=== PATIENT | female | born 1965 | race Caucasian/White ===

== ENCOUNTER 2023-05-30 13:21 | Emergency (ER) | payer MEDICARE, SELFPAY ==
[2023-05-30 13:33] VITALS: BP 136/100; PULSE 104; RESP 18; TEMP 37; O2SAT 97; BMI 28.6
--- NOTE | 2023-05-30 13:51 | XR_ITS ---
The [address] [address] Patient Name: TOR SYKES MRN: [id number] date: 1965 Sex: F Assigned Patient Location: ER Current Patient Location: ER Accession/Order Number: [id number] Exam Date: 05/30/2023 14:15 Report Date: 05/30/2023 14:52 At the request of: VANE KERNS Procedure: XR ribs LT min 3V w CXR1V EXAMINATION: XR ribs LT min 3V w CXR1V HISTORY: Fall COMPARISON: No relevant comparison available. FINDINGS: LUNGS: No significant pulmonary parenchymal abnormalities. PLEURA: No pneumothorax, effusion, or pleural thickening. MEDIASTINUM: No visible mass or adenopathy. CARDIAC: No cardiomegaly or cardiac silhouette abnormality. RIBS: Normal. No significant arthropathy or acute abnormality. OTHER: 22 mm separation of the left acromioclavicular joint; normal alignment is maintained. XR/XR ribs LT min 3V w CXR1V IMPRESSION: 1. No appreciable rib abnormality. 2. No acute cardiopulmonary process. 3. Left acromioclavicular joint separation. Electronically authenticated by: MAURICIO LARSON Date: 05/30/2023 14:52
--- NOTE | 2023-05-30 13:51 | XR_ITS ---
The [address] [address] Patient Name: TOR SYKES MRN: [id number] date: 1965 Sex: F Assigned Patient Location: ER Current Patient Location: ER Accession/Order Number: [id number] Exam Date: 05/30/2023 14:15 Report Date: 05/30/2023 14:48 At the request of: VANE KERNS Procedure: XR shoulder LT min 2V PROCEDURE: XR clavicle LT, XR shoulder LT min 2V HISTORY: Fall , left rib and shoulder pain COMPARISON: None. FINDINGS: BONES:Abnormal 22 mm widening of the acromioclavicular joint; normal alignment is maintained. Intact humeral head and glenohumeral joint. SOFT TISSUES:No visible soft tissue swelling. EFFUSION:None visible. OTHER: Negative. XR/XR shoulder LT min 2V IMPRESSION: 1. Left acromioclavicular joint separation. Electronically authenticated by: MAURICIO LARSON Date: 05/30/2023 14:48
--- NOTE | 2023-05-30 13:51 | XR_ITS ---
The [address] [address] Patient Name: TOR SYKES MRN: [id number] date: 1965 Sex: F Assigned Patient Location: ER Current Patient Location: ER Accession/Order Number: [id number] Exam Date: 05/30/2023 14:15 Report Date: 05/30/2023 14:48 At the request of: VANE KERNS Procedure: XR clavicle LT PROCEDURE: XR clavicle LT, XR shoulder LT min 2V HISTORY: Fall , left rib and shoulder pain COMPARISON: None. FINDINGS: BONES:Abnormal 22 mm widening of the acromioclavicular joint; normal alignment is maintained. Intact humeral head and glenohumeral joint. SOFT TISSUES:No visible soft tissue swelling. EFFUSION:None visible. OTHER: Negative. XR/XR clavicle LT IMPRESSION: 1. Left acromioclavicular joint separation. Electronically authenticated by: MAURICIO LARSON Date: 05/30/2023 14:48
--- NOTE | 2023-05-30 13:55 | ED_ITS ---
HPI - Trauma General Chief Complaint: Extremity Injury, Upper Stated Complaint: SHOULDER PAIN Time Seen by Provider: 05/30/23 13:23 Source: patient Mode of arrival: walk-in History of Present Illness HPI narrative: patient is a 57-year-old female, deaf and uses sign language, who presents to the Emergency Room with her significant other for the evaluation of continued left shoulder, left clavicle and left chest wall pain. Patient states she felt 8 feet for months ago on . She has previously been seen at the [place] emergency department with x-rays performed. She states they discharged her home with no medications for pain and orthopedic follow-up. She continues to have significant pain in the left shoulder joint as well as in the left clavicle. She reports pain to the left chest wall under the axilla. She has been using Tylenol without improvement. She does not take any blood thinners. She denies any pain to the neck or back. History and physical were conducted with the use of software design manager. Related Data Home Medications Medication Instructions Recorded Confirmed albuterol sulfate 90 mcg/actuation 2 puff inhalation Q4H PRN 05/30/23 05/30/23 aerosol inhaler shortness of breath or wheezing bupropion HCl 150 mg 24 hr tablet, 150 mg PO DAILY 05/30/23 05/30/23 extended release Previous Rx's Medication Instructions Recorded hydrocodone 5 mg-acetaminophen 325 1 tab PO Q6H PRN pain #12 tabs 05/30/23 mg tablet methocarbamol 750 mg tablet 750 mg PO TID PRN pain #20 tabs 05/30/23 naproxen sodium 550 mg tablet 550 mg PO BID PRN pain #10 tabs 05/30/23 Allergies Allergy/AdvReac Type Severity Reaction Status Date / Time Penicillins Allergy Severe Verified 05/30/23 13:39 Review of Systems ROS Constitutional Denies: fever or chills Ears, nose, mouth, and throat Denies: throat pain or neck pain Respiratory Denies: shortness of breath Gastrointestinal Denies: nausea or vomiting Musculoskeletal Reports: extremity pain, joint pain and limited range of motion; Denies: back pain or neck pain Integumentary/Breast Denies: rash Neurological Denies: headache Exam Narrative Exam Narrative: Gen.: Awake, alert, in no distress Head: Normocephalic, atraumatic ENT: Moist mucous membranes; cervical spine is nontender Respiratory: No respiratory distress Extremities: significant pain with movement of the left shoulder joint, diffusely tender to palpation of the left anterior clavicle with mild edema noted, no ecchymosis or erythema of the skin over the clavicle. No pain to the left elbow or forearm. No bony tenderness of the T-spine or L-spine Psych: Normal mood and affect Neuro: No focal neuro deficit Skin: Warm, dry, intact Constitutional Vital Signs, click to edit/add: Last Vital Signs Temp 98.6 F 05/30/23 13:33 Pulse 104 H 05/30/23 13:33 Resp 18 05/30/23 13:33 BP 136/100 H 05/30/23 13:33 Pulse Ox 97 05/30/23 13:33 O2 Del Method Room Air 05/30/23 13:44 Course Vital Signs Vital signs: Vital Signs Temperature 98.6 F 05/30/23 13:33 Pulse Rate 104 H 05/30/23 13:33 Respiratory Rate 18 05/30/23 13:33 Blood Pressure 136/100 H 05/30/23 13:33 Pulse Oximetry 97 05/30/23 13:33 Oxygen Delivery Method Room Air 05/30/23 13:33 Temperature 98.6 F 05/30/23 13:33 Pulse Rate 104 H 05/30/23 13:33 Respiratory Rate 18 05/30/23 13:33 Blood Pressure 136/100 H 05/30/23 13:33 Pulse Oximetry 97 05/30/23 13:33 Oxygen Delivery Method Room Air 05/30/23 13:44 MDM - Trauma MDM Narrative Medical decision making narrative: patient medicated with analgesics in the Emergency Room, x-rays of the left clavicle, left shoulder and ribs with chest show the patient has a separation of the left acromioclavicular joint. She is placed in a sling and remains neurovascularly intact. No other bony abnormalities were noted on x-rays. Patient is referred to orthopedics. She is given a short course of analgesics, muscle relaxants and NSAIDs. Return to the Emergency Room if symptoms change or worsen. Discharge instructions were provided by attending physician with the use of software design manager. Medical Records Attestation: I reviewed the patient's medical records. Imaging Data XR shoulder/clavicle/ribs: Attestation: I have reviewed the pertinent imaging results. Radiologist's impression: Procedure: XR ribs LT min 3V w CXR1V EXAMINATION: XR ribs LT min 3V w CXR1V HISTORY: Fall COMPARISON: No relevant comparison available. FINDINGS: LUNGS: No significant pulmonary parenchymal abnormalities. PLEURA: No pneumothorax, effusion, or pleural thickening. MEDIASTINUM: No visible mass or adenopathy. CARDIAC: No cardiomegaly or cardiac silhouette abnormality. RIBS: Normal. No significant arthropathy or acute abnormality. OTHER: 22 mm separation of the left acromioclavicular joint; normal alignment is maintained. IMPRESSION: 1. No appreciable rib abnormality. 2. No acute cardiopulmonary process. 3. Left acromioclavicular joint separation. Electronically authenticated by: MAURICIO LARSON Date: 05/30/2023 14:52 Discharge Plan Discharge Chief Complaint: Extremity Injury, Upper Clinical Impression: Separation of left acromioclavicular joint, Left shoulder pain Patient Disposition: Home, Self-Care Time of Disposition Decision: 14:56 Condition: Good Prescriptions / Home Meds: New hydrocodone-acetaminophen 5-325 mg tablet 1 tab PO Q6H PRN (Reason: pain) Qty: 12 0RF Rx Instructions: DX: S43.122A methocarbamol 750 mg tablet 750 mg PO TID PRN (Reason: pain) Qty: 20 0RF naproxen sodium 550 mg tablet 550 mg PO BID PRN (Reason: pain) Qty: 10 0RF No Action bupropion HCl 150 mg tablet extended release 24 hr 150 mg PO DAILY albuterol sulfate 90 mcg/actuation HFA aerosol inhaler 2 puff INHALATION Q4H PRN (Reason: shortness of breath or wheezing) Instructions: Acromioclavicular Separation (ED) Stand Alone Forms: Portal Instructions Referrals: Physician,Non-Staff, [Primary Care Provider] - 1 week Mauricio Taylor MD [Physician] - As soon as possible
[2023-05-30] MEDS: ORPHENADRINE 60 MG/ 2 ML VIAL IM (14:04)
[2023-05-30] MEDS: KETOROLAC TROMETHAMINE 60 MG/2 ML VIAL IM (14:04)
== END 2023-05-30 15:19 | disposition home or self-care (01) ==
PROVIDERS: Emergency Provider Emergency Medicine
DX: S43.102A Unspecified dislocation of left acromioclavicular joint, initial encounter (principal); W19.XXXA Unspecified fall, initial encounter; M25.512 Pain in left shoulder; H91.93 Unspecified hearing loss, bilateral; Z79.899 Other long term (current) drug therapy
CPT/HCPCS: 71101; 73000; 73030; 96372; 99284

== ENCOUNTER 2023-07-18 22:44 | Emergency (ER) | payer MEDICARE, SELFPAY ==
[2023-07-18 22:45] VITALS: BP 110/50; PULSE 87; RESP 18; TEMP 36.6; O2SAT 97; BMI 30.9
--- NOTE | 2023-07-18 22:59 | ECG_ITS ---
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
--- NOTE | 2023-07-18 23:14 | XR_ITS ---
The [address] [address] Patient Name: TOR SYKES MRN: [id number] date: 1965 Sex: F Assigned Patient Location: ED.MAIN Current Patient Location: ER Accession/Order Number: [id number] Exam Date: 07/18/2023 23:30 Report Date: 07/19/2023 00:13 At the request of: ARA MARKER Procedure: XR shoulder JHON min 2V EXAM: XR shoulder JHON min 2V HISTORY: shoulder pain s/p fall COMPARISON: Left shoulder radiographs dated 05/30/2023. TECHNIQUE: 3 views of each shoulder were obtained. FINDINGS: No acute fracture or dislocation is seen. There has been resection of the distal left clavicle. The humeral head is well-seated on the glenoid bilaterally. The coracoclavicular distance is preserved bilaterally. The imaged lungs are clear. There are mild degenerative changes of the right acromioclavicular joint. XR/XR shoulder JHON min 2V IMPRESSION: 1. No acute fracture or dislocation of either shoulder is seen. If there is concern for internal derangement, a nonemergent outpatient MRI is recommended. Electronically authenticated by: Saúl URIBE Date: 07/19/2023 00:13
--- NOTE | 2023-07-18 23:29 | ED_ITS ---
HPI - General Adult General Chief complaint: Shortness of Breath/Dyspnea Stated complaint: Weakness Time Seen by Provider: 07/18/23 22:56 Source: patient Mode of arrival: ambulance Limitations: language barrier Limitations comment: Pt is deaf History of Present Illness HPI narrative: This 57-year-old female is brought to the emergency department by EMS from home. The patient is definitely uses a printed circuit board layout designer for history and physical. The patient had a fall on and injured her left shoulder. She has been seen several times in this emergency department since that time. She told the onsite case manager that she fell again today and has severe pain in the left shoulder. She is wearing a sling on the shoulder. She denies any shortness of breath or dizziness. She states she is following up with Dr. Taylor, orthopedic surgery.An x-ray that was done on 05/30/2023 shows an AC separation of the left shoulder. She is ambulatory in the ED and moving her right arm around to communicate with the sign language interpretor Related Data Home Medications Medication Instructions Recorded Confirmed albuterol sulfate 90 mcg/actuation 2 puff inhalation Q4H PRN 05/30/23 07/18/23 aerosol inhaler shortness of breath or wheezing bupropion HCl 150 mg 24 hr tablet, 150 mg PO DAILY 05/30/23 07/18/23 extended release buspirone 15 mg tablet mg 07/18/23 citalopram 20 mg tablet mg 07/18/23 trazodone 100 mg tablet mg 07/18/23 Previous Rx's Medication Instructions Recorded hydrocodone 5 mg-acetaminophen 325 1 tab PO Q6H PRN pain #12 tabs 05/30/23 mg tablet methocarbamol 750 mg tablet 750 mg PO TID PRN pain #20 tabs 05/30/23 naproxen sodium 550 mg tablet 550 mg PO BID PRN pain #10 tabs 05/30/23 Allergies Allergy/AdvReac Type Severity Reaction Status Date / Time Penicillins Allergy Severe Verified 07/18/23 23:05 Review of Systems ROS Status of ROS 10 or more systems reviewed and unremarkable except as noted in history and below Exam Narrative Exam Narrative: Nurses note and vital signs reviewed and patient is not hypoxic. General: The patient appears well and in no apparent distress. She is communicating actively with the printed circuit board layout designer using her right upper extremity. Left upper extremity is in a sling. Skin: Warm, dry, no pallor noted. There is no rash noted. Head: Normocephalic, atraumatic Eye: Normal conjunctiva, no drainage, EOMI. PERRL Ears, Nose, Mouth, and Throat: oral mucosa is moist. Patient is edentulous Cardiovascular: Regular Rate and Rhythm Respiratory: Patient is in no distress, no accessory muscle use, lungs are clear to auscultation, no wheezing, rales or rhonchi Back: non-tender, no CVA tenderness bilaterally to percussion. GI: Normal bowel sounds, no tenderness to palpation, no masses appreciated. No rebound, guarding, or rigidity noted. Musculoskeletal: Left upper extremity is normal in appearance with tenderness to the anterior shoulder girdle. Patient resists range of motion exercises and pushes my hand away when I attempt to examine it but there is no notable deformity. Supervisor Incising strength is intact Neurological: Pt is deaf but otherwise has no focal neurologic deficits, she is communicating actively inappropriately with the printed circuit board layout designer and able to read lips. Psychiatric: Cooperative Constitutional Vital Signs, click to edit/add: Last Vital Signs Temp 97.9 F 07/18/23 22:45 Pulse 87 07/18/23 22:45 Resp 18 07/18/23 22:45 BP 110/50 07/18/23 22:45 Pulse Ox 97 07/18/23 22:45 O2 Del Method Room Air 07/18/23 22:45 Course Vital Signs Vital signs: Vital Signs Temperature 97.9 F 07/18/23 22:45 Pulse Rate 87 07/18/23 22:45 Respiratory Rate 18 07/18/23 22:45 Blood Pressure 110/50 07/18/23 22:45 Pulse Oximetry 97 07/18/23 22:45 Oxygen Delivery Method Room Air 07/18/23 22:45 Temperature 97.9 F 07/18/23 22:45 Pulse Rate 87 07/18/23 22:45 Respiratory Rate 18 07/18/23 22:45 Blood Pressure 110/50 07/18/23 22:45 Pulse Oximetry 97 07/18/23 22:45 Oxygen Delivery Method Room Air 07/18/23 22:45 Medical Decision Making MDM Narrative Medical decision making narrative: This 57-year-old female who injured her shoulder over and then had an additional fall recently presents for evaluation of ongoing/worsening left shoulder pain. She has been seeing Dr. Taylor. She requests something for pain. I reviewed her OARRs report and it shows activity on 05/30/23 after an ED visit for the same shoulder pain. She was medicated in the ED with one percocet and will be discharged home with a short course of [place]. Medical Records Medical records narrative: The [address] [address] XRay Report Signed Patient: TOR SYKES MR#: [id number] : 1965 Acct:[id number] Age/Sex: 57 / F ADM Date: 07/18/23 Loc: ER Attending Dr: Ordering Physician: Keri Meza Date of Service: 07/18/23 Procedure(s): XR shoulder JHON min 2V Accession Number(s): [id number] cc: Keri Marker; Physician,Non-Staff M.D.~ The [address] [address] Patient Name: TOR SYKES MRN: [id number] date: 1965 Sex: F Assigned Patient Location: ED.MAIN Current Patient Location: ER Accession/Order Number: [id number] Exam Date: 07/18/2023 23:30 Report Date: 07/19/2023 00:13 At the request of: KERI MEZA Procedure: XR shoulder JHON min 2V EXAM: XR shoulder JHON min 2V HISTORY: shoulder pain s/p fall COMPARISON: Left shoulder radiographs dated 05/30/2023. TECHNIQUE: 3 views of each shoulder were obtained. FINDINGS: No acute fracture or dislocation is seen. There has been resection of the distal left clavicle. The humeral head is well-seated on the glenoid bilaterally. The coracoclavicular distance is preserved bilaterally. The imaged lungs are clear. There are mild degenerative changes of the right acromioclavicular joint. XR/XR shoulder JHON min 2V IMPRESSION: 1. No acute fracture or dislocation of either shoulder is seen. If there is concern for internal derangement, a nonemergent outpatient MRI is recommended. Discharge Plan Discharge Chief Complaint: Shortness of Breath/Dyspnea Clinical Impression: Left shoulder pain Patient Disposition: Home, Self-Care Time of Disposition Decision: 00:54 Condition: Good Prescriptions / Home Meds: No Action bupropion HCl 150 mg tablet extended release 24 hr 150 mg PO DAILY albuterol sulfate 90 mcg/actuation HFA aerosol inhaler 2 puff INHALATION Q4H PRN (Reason: shortness of breath or wheezing) hydrocodone-acetaminophen 5-325 mg tablet 1 tab PO Q6H PRN (Reason: pain) Qty: 12 0RF Rx Instructions: DX: S43.122A methocarbamol 750 mg tablet 750 mg PO TID PRN (Reason: pain) Qty: 20 0RF naproxen sodium 550 mg tablet 550 mg PO BID PRN (Reason: pain) Qty: 10 0RF citalopram 20 mg tablet trazodone 100 mg tablet buspirone 15 mg tablet Instructions: Arthralgia (ED), Shoulder Pain (ED) Stand Alone Forms: Portal Instructions Referrals: Physician,Non-Staff, MD [Primary Care Provider] - 1 week Tyson Taylor MD [Physician] - 1 week
[2023-07-18] MEDS: OXYCODONE HCL/ACETAMINOPHEN 5MG/325MG 1 TAB PO (23:46)
[2023-07-19 01:10] VITALS: BP 135/85; PULSE 75; RESP 15; O2SAT 97
== END 2023-07-19 01:11 | disposition home or self-care (01) ==
PROVIDERS: Emergency Provider Emergency Medicine
DX: M25.512 Pain in left shoulder (principal); W19.XXXA Unspecified fall, initial encounter; H91.93 Unspecified hearing loss, bilateral; Z79.899 Other long term (current) drug therapy
CPT/HCPCS: 73030; 93005; 99284

== ENCOUNTER 2023-09-29 16:09 | Emergency (ER) | payer MEDICARE, MEDICAID, SELFPAY ==
[2023-09-29 16:15] VITALS: BP 116/87; PULSE 90; RESP 20; TEMP 36.7; O2SAT 97; BMI 29.6
--- OUTSIDE RECORDS SUMMARY | 2023-09-29 16:15 | XMS_ITS | CCD ---
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 Name Role Phone Unavailable Primary Care Provider RUSH Islas Referring Unavailable RUSH BULLOCK Referring Unavailable RITESH OLIVAS Attending Unavailable RITESH OLIVAS Admitting Unavailable SELF, REFERRED Referring Unavailable RAJEEV AGUIRRE Primary Care Unavailable NON STAFF Primary Care Provider UnavailMD Jm Dunlap Admit Provider MD Jm Thrasher Attending Provider NON STAFF Primary Care Provider UnavailMD Ryne Rowland Admit Provider [phone] MD Ryne Velasquez Attending Provider Ryne Velasquez Attending Unavailable NON STAFF Primary Care Unavailable Ryne Velasquez Admitting Unavailable Emilio Thrasher Admitting Unavailab Emilio Romo Attending Unavailab le NON STAFF Primary Care Unavailable Allergies Allergy Classification Reported Allergen(s) Allergy Type Date of Onset Reaction(s) Facility (4 sources) Penicillins; Translations: [PENICILLINS] Propensity to adverse reactions (disorder) 200 9 Difficulty Breathing [facility] Repository Medications Current Medications Medication Drug Class(es) Dates Sig (Normalized) Sig (Original) [id number] 200 actuat albuterol 0.09 mg/actuat metered dose inhaler (2 sources) beta2-Adrenergic Agonist Start: 09-15-2022 take 1 puff(s) by inhalation every six hours Albuterol Sulfate Active 2 PUFF INHALATION Q6H September 15, 2022 1:00am 24 hr buPROPion hydrochloride 150 mg extended release oral tablet (3 sources) Aminoketone Start: 07-12-2023 take 150 mg by mouth once daily in the morning Bupropion Hcl Active 150 MG PO Every morning July 12, 2023 12:00am Start: 09-18-2022 End: 07-09-2023 take 150 mg by mouth once daily in the morning Bupropion Hcl Discontinued 150 MG PO Every morning September 18, 2022 1:00am July 09, 2023 1:50am busPIRone hydrochloride 15 mg oral tablet (5 sources) Start: 07-12-2023 take 15 mg by mouth three times daily Buspirone Active 15 MG PO Three times daily July 12, 2023 12:00am Start: 09-15-2022 End: 07-09-2023 take 15 mg by mouth three times daily Buspirone Discontinued 15 MG PO Three times daily September 15, 2022 1:00am July 09, 2023 1:50am Start: 10-23-2020 End: 09-15-2022 take 10 mg by mouth three times daily Buspirone Discontinued 10 MG PO Three times daily October 23, 2020 1:00am September 15, 2022 2:04pm citalopram 20 mg oral tablet (5 sources) Serotonin Reuptake Inhibitor Start: 07-12-2023 take 20 mg by mouth once daily in the morning Citalopram Active 20 MG PO Every morning July 12, 2023 12:00am Start: 09-15-2022 End: 07-09-2023 take 40 mg by mouth once daily Citalopram Discontinued 40 MG PO Daily September 15, 2022 1:00am July 09, 2023 1:50am Start: 10-23-2020 End: 09-15-2022 take 20 mg by mouth once daily in the morning Citalopram Discontinued 20 MG PO Every morning October 23, 2020 1:00am September 15, 2022 2:04pm 24 hr nicotine 0.875 mg/hr transdermal system (3 sources) Cholinergic Nicotinic Agonist Start: 07-12-2023 Nicotine Active 1 EACH TRANSDERML Daily July 12, 2023 12:00am Start: 10-23-2020 End: 09-15-2022 Nicotine Discontinued 1 EACH TRANSDERML Daily October 23, 2020 1:00am September 15, 2022 2:04pm traMADol hydrochloride 50 mg oral tablet (1 source) Opioid Agonist Start: 07-12-2023 take 50 mg by mouth twice daily Tramadol Active 50 MG PO Twice daily 29 06July 12, 2023 12:00am traZODone hydrochloride 100 mg oral tablet (3 sources) Serotonin Reuptake Inhibitor Start: 07-12-2023 take 100 mg by mouth once daily at bedtime Trazodone Active 100 MG PO Daily at bedtime July 12, 2023 12:00am Start: 09-15-2022 End: 07-09-2023 take 150 mg by mouth once daily at bedtime Trazodone Discontinued 150 MG PO Daily at bedtime September 15, 2022 1:00am July 09, 2023 1:50am Completed/Discontinued Medications Medication Drug Class(es) Dates Sig (Normalized) Sig (Original) aspirin 81 mg oral tablet (2 sources) Platelet Aggregation Inhibitor, Nonsteroidal Anti-inflammatory Drug Start: 09-15-2022 End: 07-09-2023 take 81 mg by mouth once daily Aspirin Discontinued 81 MG PO Daily September 15, 2022 1:00am July 09, 2023 1:50am azithromycin 250 mg oral tablet (2 sources) Macrolide Antimicrobial Start: 10-21-2020 End: 10-23-2020 take 250 mg by mouth once daily Azithromycin Discontinued 250 MG PO Daily October 21, 2020 1:00am October 23, 2020 1:37pm 2 doses left; picked up on 10/18/2020 benzonatate 100 mg oral capsule (2 sources) Non-narcotic Antitussive Start: 10-21-2020 End: 09-15-2022 take 100 mg by mouth three times daily Benzonatate Discontinued 100 MG PO Three times daily October 21, 2020 1:00am September 15, 2022 2:04pm quanity left 13 doxycycline hyclate 100 mg oral tablet (2 sources) Tetracycline-class Drug Start: 09-15-2022 End: 07-09-2023 Doxycycline Hyclate Discontinued 100 MG PO Twice daily September 15, 2022 1:00am July 09, 2023 1:50am x10 days, needs 17 more doses fluticasone propionate 0.05 mg/actuat metered dose nasal spray (2 sources) Corticosteroid Start: 09-15-2022 End: 07-09-2023 Fluticasone Propionate Discontinued 2 SPRAY INTRANASAL Daily September 15, 2022 1:00am July 09, 2023 1:50am hydrOXYzine pamoate 25 mg oral capsule (2 sources) Antihistamine Start: 09-15-2022 End: 07-09-2023 take 25 mg by mouth three times daily Hydroxyzine Pamoate Discontinued 25 MG PO Three times daily September 15, 2022 1:00am July 09, 2023 1:50am OLANZapine 5 mg oral tablet (2 sources) Atypical Antipsychotic Start: 10-23-2020 End: 09-15-2022 take 5 mg by mouth once daily at bedtime Olanzapine Discontinued 5 MG PO Daily at bedtime October 23, 2020 1:00am September 15, 2022 2:04pm Polymyxin B Sulf-Trimethoprim (2 sources) Start: 10-21-2020 End: 09-15-2022 take 1 drop(s) into the eye(s) once daily Polymyxin B Sulf-Trimethoprim Discontinued 2 DROPS OPHTHALMIC Daily October 21, 2020 1:00am September 15, 2022 2:04pm Start: 10-21-2020 End: 09-15-2022 take 1 drop(s) into the eye(s) once daily Polymyxin B Sulf-Trimethoprim Discontinued 2 DROPS OPHTHALMIC Daily October 21, 2020 12:00am September 15, 2022 1:04pm Problems Problem Classification Problem Date Documented Da te Episodic/Chronic Mood disorders (6 sources) Recurrent major depression; Translations: [Major depressive disorder, recurrent, unspecified] Onset: 07-09-2023 10-21-2020 Chronic Other nervous system disorders (1 source) Carpal tunnel syndrome; Translations: [Carpal tunnel syndrome, left upper limb] 07-12-2023 Chronic Other nervous system disorders (1 source) Carpal tunnel syndrome, left upper limb; Translations: [Carpal tunnel syndrome, left upper limb] Onset: 07-09-2023 Chronic Suicide and intentional self-inflicted injury (3 sources) Suicidal intent; Translations: [Suicidal ideations] 09-16-2022 Episodic Results Test Name Value Interpretation Reference Range Facility Cholesterol [Mass/volume] in Serum or PlasmaOrdered By: Ryne Velasquez on 07-09-2023 Cholesterol [Mass/Vol] 161 mg/dL 140-200 [facility] Comment on above: Chol less than 200 m g/dl low riskChol 201-239 mg/dl borderline riskChol 240 mg/dl and greater high risk Cholesterol in LDL Calc [Mas s/Vol]Ordered By: Ryne Velasquez on 07-09-2023 Cholesterol in LDL [Mass/Vol] 70 mg/dL 0-100 [facility] Comment on above: LDL ATP III CLASSIFI CATIONLDL less than 100 mg/dL OptimalLDL 100-129 mg/dL Near or above optimalLDL 130-159 mg/dL Borderline highLDL 160-189 mg/dL HighLDL greater than 189 mg/dL Very high Cholesterol in VLDL Calc [Ma ss/Vol]Ordered By: Ryne Velasquez on 07-09-2023 Cholesterol in VLDL [Mass/Vol] 40 mg/dL [facility] ECG 12 lead ECGon 07-09-2023 ECG 12 lead ECG [place] [address] Electrocardiograph Report Signed Patient: Leatha Sykes MR#: [id number] : 1965 Acct:[id number] Age/Sex: 57 / F ADM Date: 07/09/23 Loc: Room: [address] [place] [address] Type: ADM IN Attending Dr: Ryne Velasquez MD Ordering Provider: Ryne Velasquez MD Date of Service: 07/09/23 ECG/ECG 12 lead ECG: ANTIPSYCHOTIC THERAPY Copies to: Test Reason : Blood Pressure : / mmHG Vent. Rate : 084 BPM Atrial Rate : 084 BPM P-R Int : 170 ms QRS Dur : 076 ms QT Int : 400 ms P-R-T Axes : 069 066 070 degrees QTc Int : 472 ms Sinus rhythm Normal ECG No previous ECGs available Confirmed by LUIS ENRIQUE LOW FACCDIRK ([id number]) on 07/09/2023 11:43:26 AM Referred By: Electronically Signed By:DIRK DIXON MD FACC Transcribed By: MUS Signed By Dirk Dixon MD, FACC 07/09/23 1143 Normal [facility] Lipid Panelon 07-09-2023 Cholesterol [Mass/Vol] 161 mg/dL Normal 140-200 [facility] Comment on above: Result Comment: Chol less than 200 mg/dl low risk Chol 201-239 mg/dl borderline risk Chol 240 mg/dl and greater high risk Performed By: #### L IPID, TSH3 wRFLX #### [facility] [address] [place] [address] [place] Cholesterol in HDL [Mass/Vol] 51 mg/dL Normal 23-92 [facility] Comment on above: Result Comment: HDL CHOL ATP-III CLASSIFICATION Cardiovascular Risk HDL > or equal to 60 mg/dL LOW HDL < 40 mg/dL HIGH Performed By: #### L IPID, TSH3 wRFLX #### [facility] [address] Cholesterol.total/Chol esterol in HDL [Mass ratio] 3.2 {ratio} Normal <5.0 [facility] Comment on above: Performed By: #### L IPID, TSH3 wRFLX #### [facility] [address] [place] [address] LDL Cholesterol,Calculated 70 mg/dL Normal 0-100 [facility] Comment on above: Result Comment: LDL ATP III CLASSIFICATION LDL less than 100 mg/dL Optimal LDL 100-129 mg/dL Near or above optimal LDL 130-159 mg/dL Borderline high LDL 160-189 mg/dL High LDL greater than 189 mg/dL Very high Performed By: #### L IPID, TSH3 wRFLX #### [facility] [address] [place] [address] [place] Triglyceride w/Reflex 200 mg/dL High 0-149 [facility] Comment on above: Result Comment: TRIG ATP III CLASSIFICATION TRIG less than 150 mg/dL Normal TRIG 150-199 mg/dL Borderline high TRIG 200-500 mg/dL High TRIG greater than 500 mg/dL Very high Standard traceable to the Center for Disease Conrtrol and Prevention (CDC) test method. Performed By: #### L IPID, TSH3 wRFLX #### [facility] [address] [place] [id number] [place] VLDL CHOLESTEROL 40 mg/dL Normal [facility] Comment on above: Performed By: #### L IPID, TSH3 wRFLX #### [facility] [address] [place] [address] Serum or plasma high density lipoprotein (HDL) cholesterol measurementOrdered By: Ryne Velasquez on 07-09-2023 Cholesterol in HDL [Mass/Vol] 51 mg/dL 23- [facility] Comment on above: HDL CHOL ATP-III CLA SSIFICATION Cardiovascular RiskHDL > or equal to 60 mg/dL LOWHDL < 40 mg/dL HIGH Serum or plasma total choles terol/high density lipoprotein (HDL) cholesterol mass ratOrdered By: Ryne Velasquez on 07-09-2023 Cholesterol.total/Chol esterol in HDL [Mass ratio] 3.2 {ratio} <5.0 [facility] Thyroid Stim Hormone w/Rflxo n 07-09-2023 Thyroid Stim Hormone w/Rflx 3.99 u[iU]/mL Normal 0.45-5.33 [facility] Comment on above: Result Comment: PERF ORMED BY: [place] [address] PATHOLOGIST [employer]OT CASTER WINIFRED MOYER M.D. Performed By: #### L IPID, TSH3 wRFLX #### [facility] [address] [place] [address] Thyrotropin [Units/volume] i n Serum or PlasmaOrdered By: Ryne Velasquez on 07-09-2023 TSH Qn 3.99 m[IU]/L 0.45-5.33 [facility] Triglyceride [Mass/volume] i n Serum or PlasmaOrdered By: Ryne Velasquez on 07-09-2023 Triglyceride [Mass/Vol] 200 mg/dL 0-149 [facility] Comment on above: TRIG ATP III CLASSIF ICATIONTRIG less than 150 mg/dL NormalTRIG 150-199 mg/dL Borderline highTRIG 200-500 mg/dL High TRIG greater than 500 mg/dL Very highStandard traceable to the Center for Disease Conrtrol and Prevention (CDC) test method. Cholesterol [Mass/volume] in Serum or PlasmaOrdered By: Emilio Thrasher on 09-16-2022 Cholesterol [Mass/Vol] 155 mg/dL 140-200 [facility] Comment on above: Chol less than 200 m g/dl low riskChol 201-239 mg/dl borderline riskChol 240 mg/dl and greater high risk Cholesterol in LDL Calc [Mas s/Vol]Ordered By: Emilio Thrasher on 09-16-2022 Cholesterol in LDL [Mass/Vol] 70 mg/dL 0-100 [facility] Comment on above: LDL ATP III CLASSIFI CATIONLDL less than 100 mg/dL OptimalLDL 100-129 mg/dL Near or above optimalLDL 130-159 mg/dL Borderline highLDL 160-189 mg/dL HighLDL greater than 189 mg/dL Very high Cholesterol in VLDL Calc [Ma ss/Vol]Ordered By: Emilio Thrasher on 09-16-2022 Cholesterol in VLDL [Mass/Vol] 34 mg/dL [facility] No Panel InformationOrdered By: Emilio Thrasher on 09-16-2022 25-Hydroxy Vitamin D Total 38.9 ng/mL 30-100 [facility] Comment on above: VITAMIN D STATUS 25( [place])VITAMIN D RANGE (ng/mL) Deficient <20 Insufficient 20 to <30Sufficient 30 to 100Reference: Wili MF,Melina NC, Kiesha QUIGLEY, et al. Evaluation,treatment, and prevention of vitamin D deficiency; an Endocrine Society clinical practice guideline. JCEM. 2010; 96(7):1911-30. Serum or plasma high density lipoprotein (HDL) cholesterol measurementOrdered By: Emilio Thrasher on 09-16-2022 Cholesterol in HDL [Mass/Vol] 51 mg/dL 35-85 [facility] Comment on above: HDL CHOL ATP-III CLA SSIFICATION Cardiovascular RiskHDL > or equal to 60 mg/dL LOWHDL < 40 mg/dL HIGH Serum or plasma total choles terol/high density lipoprotein (HDL) cholesterol mass ratOrdered By: Emilio Thrasher on 09-16-2022 Cholesterol.total/Chol esterol in HDL [Mass ratio] 3.0 {ratio} <5.0 [facility] TSH DL <= 0.005 mIU/L QnOrde red By: Emilio Thrasher on 09-16-2022 TSH Qn 3.00 m[IU]/L 0.45-5.33 [facility] Triglyceride [Mass/volume] i n Serum or PlasmaOrdered By: Emilio Thrasher on 09-16-2022 Triglyceride [Mass/Vol] 170 mg/dL 35-149 [facility] Comment on above: TRIG ATP III CLASSIF ICATIONTRIG less than 150 mg/dL NormalTRIG 150-199 mg/dL Borderline highTRIG 200-500 mg/dL High TRIG greater than 500 mg/dL Very highStandard traceable to the Center for Disease Conrtrol and Prevention (CDC) test method. HAND RIGHT 3 Son HAND RIGHT 3 [facility] Department of Radiology [address] [place] [phone] ======== Patient Name: LEATHA SYKES : 1965 Sex: F Age: Race: White Pt. Location: Patient Status: D Ordered Date: 08/16/2021 10:50:00 AM Completed Date: 08/16/2021 11:14 AM Requesting Provider: ALEX MOTA Attending Provider: ALEX MOTA Report Copy To: Signs & Symptoms: S62.308A Unsp fracture of oth metacarpal bone, init for clos fx I10 History: Comments: Evaluate Exam: HAND RIGHT 3 VWS ======== HAND RIGHT 3 VWS HISTORY: Surgery, follow-up. COMPARISON: 06/21/2021. IMPRESSION: 1. Unchanged remote posttraumatic deformity of the fifth metacarpal shaft, osseous bridging noted. Unchanged hardware tracts throughout the third through fifth metacarpals. No acute abnormality. Electronically signed: Dennis Molina. Transcribed by: [email or web address], User Resident: Electronically Signed by: DENNIS MOLINA @ 08/17/2021 09:39 AM Normal [facility] Comment on above: Order Comment: Evalu ate HAND RIGHT 3 VWSon HAND RIGHT 3 S [facility] Department of Radiology [address] [place] [phone] ======== Patient Name: LEATHA SYKES : 1965 Sex: F Age: Race: White Pt. Location: Patient Status: D Ordered Date: 06/21/2021 2:05:00 PM Completed Date: 06/21/2021 02:04 PM Requesting Provider: ALEX MOTA Attending Provider: ALEX MOTA Report Copy To: Signs & Symptoms: S62.308A Unsp fracture of oth metacarpal bone, init for clos fx I10 History: Ksenia Comments: evaluate Exam: HAND RIGHT 3 VWS ======== HAND RIGHT 3 VWS 06/21/2021 2:04 PM CLINICAL INDICATIONS: S62.308A Unsp fracture of oth metacarpal bone, init for clos fx I10 TECHNOLOGIST COMMENTS: Pt stated follow up after surgery. QUESTION FOR THE RADIOLOGIST: evaluate PROTOCOL: AP,Lateral and Oblique views were obtained. COMPARISON: 06/07/2021 FINDINGS: Interval removal of the 5 K wires through the fourth and fifth metacarpals. There is persistent volar angulation of the head of the fifth metacarpal. Some degenerative changes of the radiocarpal joint and at the base of the first metacarpal as well as DIP joints. There is cortical irregularity of the ulnar portion of the third metacarpal that is likely from internal fixation placement. Soft tissues unremarkable. IMPRESSION: * Interval removal of fixation hardware and continued healing of the fracture of the distal fifth metacarpal. Approved by:Blake Elyn1 8:03 AM. I, Timi Roy,have reviewed the image(s) and agree with the findings in this report. Electronically signed: Timi Roy. Transcribed by: [email or web address], User Resident: BLAKE PIMENTEL Electronically Signed by: TIMI ROY @ 06/23/2021 09:09 AM I personally read this/these film(s) with this resident Normal [facility] Comment on above: Order Comment: evalu ate HAND RIGHT 3 [facility] 1 HAND RIGHT 3 S [facility] Department of Radiology [address] [place] [phone] ======== Patient Name: LEATHA SYKES : 1965 Sex: F Age: Race: White Pt. Location: Patient Status: O Ordered Date: 06/07/2021 2:10:00 PM Completed Date: 06/07/2021 02:30 PM Requesting Provider: ALEX MOTA Attending Provider: ALEX MOTA Report Copy To: Signs & Symptoms: M79.641 Pain in right hand I10 History: Comments: evaluate Exam: HAND RIGHT 3 S ======== HAND RIGHT 3 S 06/07/2021 2:30 PM CLINICAL INDICATIONS: M79.641 Pain in right hand I10 TECHNOLOGIST COMMENTS: History of right hand surgery 04/26/2021. Ortho follow up. QUESTION FOR THE RADIOLOGIST: evaluate PROTOCOL: AP,Lateral and Oblique views were obtained. COMPARISON: 05/09/2021 FINDINGS: 3 views of the hand were obtained. 5 pins traverse the fourth and fifth metacarpal region with a healing fifth metacarpal fracture. Alignment is unchanged with progression of callus formation in the interval. Other osseous structures demonstrate no claudication with mild bone demineralization evident. IMPRESSION: Healing fifth metacarpal fracture status post internal fixation. Electronically signed: Dustin Lin. Transcribed by: [email or web address], User Resident: Electronically Signed by: DUSTIN LIN @ 06/07/2021 04:13 PM Normal [facility] Comment on above: Order Comment: evalu ate HAND RIGHT 3 Son HAND RIGHT 3 [facility] Department of Radiology [address] [place] [phone] ======== Patient Name: LEATHA SYKES : 1965 Sex: F Age: Race: White Pt. Location: Patient Status: O Ordered Date: 05/09/2021 7:35:00 AM Completed Date: 05/09/2021 07:54 AM Requesting Provider: MARCELO FRITZ Attending Provider: MARCELO FRITZ Report Copy To: Signs & Symptoms: S62.308A Unsp fracture of oth metacarpal bone, init for clos fx I10 History: Comments: Evaluate Exam: HAND RIGHT 3 S ======== HAND RIGHT 3 S 05/09/2021 7:54 AM CLINICAL INDICATIONS: S62.308A Unsp fracture of oth metacarpal bone, init for clos fx I10 TECHNOLOGIST COMMENTS: ortho follow up. surgery to the right hand april 26 2021 QUESTION FOR THE RADIOLOGIST: Evaluate PROTOCOL: AP,Lateral and Oblique views were obtained. COMPARISON: 04/25/2021 FINDINGS: Exam partially degraded by overlying splint material. Interval placement of pin fixation of the fourth and fifth metacarpals. Redemonstration of an oblique fracture of the distal fifth metacarpal. There is minimal displacement with slight volar angulation, stable from prior exam. Fracture line remains visible. Surgical hardware is intact, without evidence of hardware complication. No new fracture or dislocation. Degenerative changes of the first MCP joint with slight subluxation of the first proximal phalanx, unchanged from prior exam. Scattered degenerative changes of the interphalangeal joints. IMPRESSION: 1. Interval surgical pin fixation of the fourth and fifth metacarpals without complication. 2. Unchanged oblique fracture of the distal fifth metacarpal. Approved by:Clarence Bragg05/09/2021 8:40 AM. I, Lisa Morales,have reviewed the image(s) and agree with the findings in this report. Electronically signed: Lisa Morales. Transcribed by: [email or web address], User Resident: CLARENCE BRISENO Electronically Signed by: LISA MORALES @ 05/09/2021 10:55 AM I personally read this/these film(s) with this resident Normal [facility] Comment on above: Order Comment: Evalu ate HAND RIGHT 2 [facility] 1 HAND RIGHT 2 VWS [facility] Department of Radiology [address] [place] [phone] ======== Patient Name: LEATHA SYKES : 1965 Sex: F Age: Race: White Pt. Location: OUTP Patient Status: O Ordered Date: 04/26/2021 7:15:00 AM Completed Date: 04/26/2021 01:05 PM Requesting Provider: MARCELO FRITZ Attending Provider: MARCELO FRITZ Report Copy To: Signs & Symptoms: Intra op. CRPP vs ORIF Right 5th Metacarpal. History: Comments: Intra op. CRPP vs ORIF Right 5th Metacarpal. Exam: HAND RIGHT 2 [facility] ======== HAND RIGHT 2 [facility] intraoperative fluoroscopy 04/26/2021 1:05 PM CLINICAL INDICATIONS: Intra op. CRPP vs ORIF Right 5th Metacarpal. TECHNOLOGIST COMMENTS: Intra op. CRPP Right 5th met[address]arp[address] Dr Fritz used 25 seconds of fluoro. IMPRESSION: Dictation for documentation purposes. Fluoroscopic imaging of the right hand. Fifth metacarpal fracture noted. Overlying surgical hardware 8 total images submitted, 25.4 seconds of fluoroscopy utilized. Total cumulative dose 0.41 mGy. Approved by:Arash Aranda04/27/2021 1:29 PM. I, Christiano Nguyen,have reviewed the image(s) and agree with the findings in this report. Electronically signed: Christiano Nguyen. Transcribed by: [email or web address], User Resident: ARASH MARKS Electronically Signed by: CHRISTIANO DARNELL @ 04/27/2021 01:58 PM I personally read this/these film(s) with this resident Normal [facility] Comment on above: Order Comment: Intra op. CRPP vs ORIF Right 5th Metacarpal. Operative Reporton Operative Report MR#: [id number] [facility] Pt. Name: Leatha Sykes Room #: 0C Discharge Date: Birthdate: 1965 OPERATIVE REPORT DATE OF SURGERY: 04/26/2021 SURGEON: Marcelo Fritz M.D. PREOPERATIVE DIAGNOSIS: Right 5th metacarpal neck fracture. POSTOPERATIVE DIAGNOSIS: Right 5th metacarpal neck fracture. PROCEDURE PERFORMED: Closed reduction and percutaneous pinning, right 5th metacarpal neck fracture. ASSISTANTS: 1. Italia Carr M.D. 2. Macario Barrientos M.D. 3. Patricio Sanchez M.D. ANESTHESIA: Monitored anesthesia with regional block. SPECIMENS: None. IMPLANTS: 0.045 K-wires x5. ESTIMATED BLOOD LOSS: Minimal. TOURNIQUET TIME: None used. COMPLICATIONS: None. INDICATION FOR PROCEDURE: The patient is a 55-year-old female, who [facility] with complaints of right hand pain. The patient sustained injury approximately 3 weeks prior to her right hand. Radiographs were obtained, which demonstrated a right 5th metacarpal neck fracture in acceptable alignment. The patient was placed in an ulnar gutter splint and instructed to follow up. Under subsequent follow up, she was noted to have subsequently displaced in her splint compared to prior x-rays. On the lateral x-ray views, she was found to have approximately 60 degrees of apex dorsal angulation. Given the patient's displacement in her splint, we elected to proceed with closed reduction and percutaneous pinning versus open reduction and internal fixation of right 5th metacarpal neck fracture. The patient agreed with the plan. DESCRIPTION OF PROCEDURE: The patient was met in the preoperative holding area. Informed consent was confirmed. The operative extremity was marked. The patient was taken back to the operating room and placed supine on the operating table. anesthesia was induced without complications. A tourniquet was placed to the right upper extremity, which was then prepped and draped in a standard sterile fashion. We began our procedure with a surgical time-out that confirmed the correct operative site, procedure, and laterality. We began with x-rays in the AP and lateral views, which re-demonstrated a right 5th metacarpal neck fracture. There was a significant amount of apex dorsal angulation. Utilizing the Jahss maneuver, we were able to achieve a closed reduction. This was confirmed on the lateral view. However, the AP view appeared to be somewhat displaced. We therefore placed a 0.062 K-wire dorsally into the fracture site, which was then used as a joystick to aid in reduction. This was then confirmed on AP and lateral views and found to be satisfactory. We then proceeded with a percutaneous pinning of the 5th and the 4th metacarpals. A 0.045 K-wire was 1st placed distal to the fracture site and pinned into the 4th metacarpal. This was followed by an additional 0.045 K-wire placed proximal to the fracture site. With the 2 K-[address], provisional reduction was confirmed on AP and lateral views and found to be stable. We then placed an additional pin distally and 2 pins proximally. At this point, final x-rays were obtained in the AP and lateral views, which demonstrated satisfactory reduction of the 5th metacarpal neck fracture. The K-wires were then bent and cut to the level of the skin. Soft dry dressings were applied. A well-padded ulnar gutter splint was applied. The patient was awoken from anesthesia and transferred to the PACU in good and stable condition. Dr. Fritz was present for all augustin and critical portions of procedure and immediately available all times. DISCHARGE INSTRUCTIONS: The patient will be nonweightbearing to the right upper extremity. She will be discharged with pain medications and instructed to follow up in 10-14 days for repeat x-rays and clinical re-evaluation. All questions and concerns were answered with the patient and family prior to discharge. Electronically Signed by: Marcelo Fritz M.D. 04/26/2021 05:31 P Marcelo Ebraheim, M.D. I was present for the augustin and critical portions and I was otherwise immediately available to assist. Date Dict: 04/26/2021/01:12 P/Italia Carr MD Date Trans: 04/26/2021 02:39 P/mmo [id number] Normal [facility] POC GLUCOSE LABon 04-26-2021 Glucose [Mass/Vol] 110 mg/dL High 70-100 [facility] Comment on above: Performed By: #### 8 [id number] #### [facility] [address] [facility] [address] *SARS-CoV-2 COVID-19on 04-25 SARS-CoV-2 (COVID-19) RNA MAYDA+probe Ql (Unsp spec) Not detected Normal Not Detected [facility] Comment on above: Order Comment: The A ptima SARS-CoV-2 assay is a nucleic acid amplification test intended for the qualitative detection of RNA from SARS-CoV-2 isolated and purified from nasopharyngeal (CAR PUSHER),oropharyngeal (OP), nasal swab, sputum, and bronchoalveolar lavage (BAL) specimens from patients with signs and symptoms of infection who are suspected of COVID-19. Results are for the identification of SARS-CoV-2 RNA. The SARS-CoV-2 RNA is generally detectable during the acute phase of infection. The Aptima SARS-CoV-2 Assay on the [employer] and [employer] Fusion system is intended for use by laboratory personnel specifically instructed and trained in the operation of the [place] and [employer] Fusion system. The Aptima SARS-CoV-2 assay is only for use under the Food and Drug Administration Emergency Use Authorization. Testing is limited to laboratories certified under the Clinical Laboratory Improvement Amendments of 1988 (CLIA), 42 U.S.C. ???263a, to perform high complexity tests. Not Detected: Not detected does not preclude SARS-CoV-2 infection and should not be used as the sole basis for patient management decisions. Not detected results must be combined with clinical observations, patient history, and epidemiological information. Performed By: #### 3 [id number] #### [facility] [address] [employer] [address], [facility] APTTon 04-25-2021 aPTT Coag (Bld) [Time] 35.6 s High 25.0-35.0 [facility] Comment on above: Order Comment: PTT a lso ordered originally per [facility] PAT. Result Comment: ALL RESULTS MUST BE INTERPRETED WITH RESPECT TO BLOOD DRAWING ARTIFACT OR DILUTION ERROR OF ANTICOAGULANT AT THE TIME OF SAMPLING. THE APTT SHOULD NOT BE USED TO MONITOR UNFRACTIONATED HEPARIN THERAPY, THIS LABORATORY NO LONGER HAS AN ESTABLISHED THERAPEUTIC RANGE BASED ON THE APTT. IT IS RECOMMENDED THAT THE UFH - HEPARIN ASSAY (ANTI-XA ACTIVITY) BE USED FOR THIS PURPOSE. Performed By: #### 5 6101, [id number] #### [facility] [address] [place] [address], [facility] BASIC METABOLIC PANELon 04-10 Calcium [Mass/Vol] 9.5 mg/dL Normal 8.6-10.3 [facility] Comment on above: Performed By: #### 0 0071 #### [facility] [address] [place] [address], [facility] Chloride [Moles/Vol] 103 mmol/L Normal 98-107 [facility] Comment on above: Performed By: #### 0 0071 #### [facility] [address] [place] [address], [facility] CO2 [Moles/Vol] 25 mmol/L Normal 21-31 [facility] Comment on above: Performed By: #### 0 0071 #### [facility] [address] [place] [address], [facility] Creatinine [Mass/Vol] 0.87 mg/dL Normal 0.60-1.20 [facility] Comment on above: Performed By: #### 0 0071 #### [facility] [address] [place] [address], [facility] GFR/1.73 sq M.predicted among blacks MDRD (S/P/Bld) [Vol rate/Area] mL/min/{1.73_m2} Normal >60 [facility] Comment on above: Performed By: #### 0 0071 #### [facility] [address] [facility] [address], [facility] GFR/1.73 sq M.predicted among non-blacks MDRD (S/P/Bld) [Vol rate/Area] mL/min/{1.73_m2} Normal >60 [facility] Comment on above: Performed By: #### 0 0071 #### [facility] [address] [place] [address], [facility] Glucose [Mass/Vol] 94 mg/dL Normal 70-100 [facility] Comment on above: Performed By: #### 0 0071 #### [facility] [address] [place] [address], [facility] Potassium [Moles/Vol] 3.7 mmol/L Normal 3.5-5.1 [facility] Comment on above: Performed By: #### 0 0071 #### [facility] [address] [place] [address], [facility] Sodium [Moles/Vol] 136 mmol/L Normal 136-145 [facility] Comment on above: Performed By: #### 0 0071 #### [facility] [address] [place] [address], [facility] Urea nitrogen [Mass/Vol] 16 mg/dL Normal 7-25 [facility] Comment on above: Performed By: #### 0 0071 #### [facility] [address] [place] [address], [facility] CBC W/DIFFon 04-25-2021 ABS IMM GRANS 0.0 10*3/uL Normal 0.0-0.2 [facility] Comment on above: Performed By: #### 5 0103 #### [facility] [address] [facility]. [place] [id number], [facility] ABS NEUTROPHILS 5.5 10*3/uL Normal 1.6-7.6 [facility] Comment on above: Performed By: #### 5 0103 #### [facility] [address] [place] [address], [facility] Basophils (Bld) [#/Vol] 0.1 10*3/uL Normal 0.0-0.2 [facility] Comment on above: Performed By: #### 5 0103 #### [facility] [address] [place] [address], [facility] Basophils/100 WBC (Bld) 0.6 % Normal 0.0-1.0 [facility] Comment on above: Performed By: #### 5 0103 #### [facility] [address] [place] [address], [facility] Eosinophils (Bld) [#/Vol] 0.0 10*3/uL Normal 0.0-0.5 [facility] Comment on above: Performed By: #### 5 0103 #### [facility] [address] [place] [address], [facility] Eosinophils/100 WBC (Bld) 0.5 % Normal 0.0-6.0 [facility] Comment on above: Performed By: #### 5 0103 #### [facility] [address] [place] [address], [facility] Erythrocyte distribution width (RBC) [Ratio] 13.0 % Normal 11.5-15.0 [facility] Comment on above: Performed By: #### 5 0103 #### [facility] [address] [place] [id number], [facility] Hematocrit (Bld) [Volume fraction] 44.1 % Normal 36.0-45.0 [facility] Comment on above: Performed By: #### 5 3 #### [facility] [address] [place] [address], [facility] Hemoglobin (Bld) [Mass/Vol] 14.2 g/dL Normal 12.0-15.0 [facility] Comment on above: Performed By: #### 5 0103 #### [facility] [address] [facility] [address], [facility] IMMATURE GRANS 0.2 % Normal 0.0-1.0 [facility] Comment on above: Performed By: #### 5 0103 #### [facility] [address] [facility] [place] [address], [facility] Lymphocytes (Bld) [#/Vol] 2.6 10*3/uL Normal 1.2-4.0 [facility] Comment on above: Performed By: #### 5 0103 #### [facility] [address] [place] [address], [facility] Lymphocytes/100 WBC (Bld) 30.3 % Normal 20.0-45.0 [facility] Comment on above: Performed By: #### 5 3 #### [facility] [address] [facility]. [address] MCH (RBC) [Entitic mass] 29.5 pg Normal 27.0-33.0 [facility] Comment on above: Performed By: #### 5 0103 #### [facility] [address] [place] [address], [facility] MCHC (RBC) [Mass/Vol] 32.2 g/dL Normal 32.0-35.0 [facility] Comment on above: Performed By: #### 5 0103 #### [facility] [address] [place] [address], [facility] MCV (RBC) [Entitic vol] 91.5 fL Normal 82.0-98.0 [facility] Comment on above: Performed By: #### 5 3 #### [facility] [address] [place] [address], [facility] Monocytes (Bld) [#/Vol] 0.3 10*3/uL Normal 0.1-1.0 [facility] Comment on above: Performed By: #### 5 0103 #### [facility] [address] [facility] [address], [facility] MONOS 3.8 % Low 5.0-12.0 [facility] Comment on above: Performed By: #### 5 0103 #### [facility] [address] [facility] [place] [address], [facility] Neutrophils/100 WBC (Bld) 64.6 % Normal 40.0-72.0 [facility] Comment on above: Performed By: #### 5 0103 #### [facility] [address] [place] [address], [facility] Nucleated RBC/100 WBC (Bld) [Ratio] 0 % Normal 0-0 [facility] Comment on above: Performed By: #### 010 #### [facility] [address] [place] [address], [facility] PLAT CNT 326 10*3/uL Normal 150-400 [facility] Comment on above: Performed By: #### 5 0103 #### [facility] [address] [place] [address], [facility] RBC (Bld) [#/Vol] 4.82 10*6/uL Normal 3.80-5.00 [facility] Comment on above: Performed By: #### 5 0103 #### [facility] [address] [place] [address], [facility] WBC (Bld) [#/Vol] 8.48 10*3/uL Normal 4.00-10.60 [facility] Comment on above: Performed By: #### 5 0103 #### [facility] [address] [place] [address], [facility] HAND RIGHT 3 VWSon 1 HAND RIGHT 3 S [facility] Department of Radiology [address] [place] [address] [phone] ======== Patient Name: LEATHA SYKES : 1965 Sex: F Age: Race: White Pt. Location: 419 Patient Status: O Ordered Date: 04/25/2021 9:10:00 AM Completed Date: 04/25/2021 09:19 AM Requesting Provider: MARCELO FRITZ Attending Provider: MARCELO FRITZ Report Copy To: Signs & Symptoms: S62.308A Unsp fracture of oth metacarpal bone, init for clos fx I10 History: Ksenia Comments: Evaluate Exam: HAND RIGHT 3 S ======== HAND RIGHT 3 S 04/25/2021 9:19 AM CLINICAL INDICATIONS: S62.308A Unsp fracture of oth metacarpal bone, init for clos fx I10 TECHNOLOGIST COMMENTS: Patient states post fall ortho follow up of right hand PROTOCOL: AP,Lateral and Oblique views were obtained. COMPARISON: 04/13/2021 FINDINGS: Appreciation of fine bony detail may be limited by overlying volar splint material. There is redemonstration of an oblique fracture of the distal fifth metacarpal. There is minimal displacement and similar appearing volar angulation. Lucent fracture line still visible. The radiocarpal and ulnocarpal joint spaces are preserved. The carpal arcs appear well-maintained. No significant degenerative joint changes are noted. IMPRESSION: * Fracture at the distal fifth metacarpal with minimal displacement and volar angulation of distal fragment, similar to prior imaging. Approved by:Arash Aranda04/25/2021 9:48 AM. Timi Kaplan,have reviewed the image(s) and agree with the findings in this report. Electronically signed: Timi Roy. Transcribed by: [email or web address], User Resident: ARASH MARKS Electronically Signed by: TIMI MEDINASandro @ 04/25/2021 11:17 AM I personally read this/these film(s) with this resident Normal [facility] Comment on above: Order Comment: Evalu ate HEMOGLOBIN A1Con 04-25-2021 Glucose [Moles/Vol] 120 mmol/L Normal [facility] Comment on above: Performed By: #### 3 1791 #### [facility] [address] [employer] [address] HbA1c (Bld) [Mass fraction] 5.8 % Normal 4.0-6.0 [facility] Comment on above: Performed By: #### 3 1791 #### [facility] [address] [employer] [address] PROTHROMBIN TIMEon INR Coag (PPP) [Relative time] 0.96 {INR} Normal 0.91-1.16 [facility] Comment on above: Result Comment: ACCC P RECOMMENDED INR FOR WARFARIN THERAPY --------- ------- CONDITION INR PROPHYLAXIS OF VENOUS THROMBOSIS 2-3 (HIGH-RISK SURGERY) TREATMENT OF VENOUS THROMBOSIS 2-3 TREATMENT OF PULMONARY EMBOLISM 2-3 PREVENTION OF SYSTEMIC EMBOLISM: 2-3 ACUTE MYOCARDIAL INFARCTION TISSUE HEART VALVES VALVULAR HEART DISEASE ATRIAL FIBRILLATION RECURRENT SYSTEMIC EMBOLISM MECHANICAL HEART VALVE 2.5-3.5 FROM: ORAL ANTICOAGULANTS. MECHANISM OF ACTION, CLINICAL EFFECTIVENESS, AND OPTIMAL THERAPEUTIC RANGE. CHEST 1995;108:231S-246S. Performed By: #### 5 6101, [id number] #### [place] [address], [facility] PT Coag (PPP) [Time] 12.8 s Normal 12.3-14.8 [facility] Comment on above: Result Comment: ALL RESULTS MUST BE INTERPRETED WITH RESPECT TO BLOOD DRAWING ARTIFACT OR DILUTION ERROR OF ANTICOAGULANT AT THE TIME OF SAMPLING. Performed By: #### 5 6101, [id number] #### [facility] [address] [place] [address], [facility] WRIST RIGHT 3 VWSon 04-13-20 21 WRIST RIGHT 3 VWS [facility] Department of Radiology [address] [place] [phone] ======== Patient Name: LEATHA SYKES : 1965 Sex: F Age: Race: White Pt. Location: [facility] Patient Status: O Ordered Date: 04/13/2021 10:00:00 AM Completed Date: 04/13/2021 10:06 AM Requesting Provider: MARCELO FRITZ Attending Provider: MARCELO FRITZ Report Copy To: Signs & Symptoms: M25.531 Pain in right wrist I10 History: [place] Comments: Evaluate Exam: WRIST RIGHT 3 VWS ======== WRIST RIGHT 3 VWS 04/13/2021 10:06 AM CLINICAL INDICATIONS: M25.531 Pain in right wrist I10 TECHNOLOGIST COMMENTS: Follow up right wrist injury 03/24/21 QUESTION FOR THE RADIOLOGIST: Evaluate PROTOCOL: AP,Lateral and Oblique views were obtained. COMPARISON: None FINDINGS: Evaluation of fine bony detail is limited due to overlying splint material. There is a mildly displaced right fifth metacarpal head fracture with volar angulation of the distal fracture fragment. No prior for comparison. There is some cortical irregularity at the partially visualized ulnar aspect of the proximal shaft of the radius which may indicate healed prior injury, incompletely evaluated on current study. There is mild degenerative changes noted at the DIP joints. There appears be slight subluxation of the proximal first phalanx. The carpal arcs are maintained. The radiocarpal and ulnocarpal joint spaces are preserved. IMPRESSION: * Mildly displaced right fifth metacarpal head fracture with volar angulation of the distal fracture fragment, no prior for comparison. * Degenerative changes in the hand consistent with osteoarthritis. Approved by:Arash Aranda04/13/2021 1:55 PM. I, Rush Saldana,have reviewed the image(s) and agree with the findings in this report. Electronically signed: Rush Saldana. Transcribed by: [email or web address], User Resident: RUSH MARKS Electronically Signed by: RUSH SALDANA @ 04/13/2021 03:07 PM I personally read this/these film(s) with this resident Normal [facility] Comment on above: Order Comment: Evalu ate Drug Scr, Abuse, Uron 2020 Amphetamine(s),Ur Negative Normal NEG [facility] Comment on above: Performed By: #### D AU #### [facility] [address] [place] [address] Hay Stacker: Ruiz Vences MD Barbiturate(s),Ur Negative Normal NEG [facility] Comment on above: Performed By: #### D AU #### [facility] [address] [place] [address] Hay Stacker: Ruiz Vences MD Benzodiazepine(s) Negative Normal NEG [facility] Comment on above: Performed By: #### D AU #### [facility] [address] [place], [place] [id number] [place] Stacker: Ruiz Vences MD Buprenorphrine, Ur Negative Normal NEG [facility] Comment on above: Performed By: #### D AU #### [facility] [address] [place], [place] [id number] [employer] Stacker: Ruiz Vences MD Cannabinoid(s),Ur Positive Abnormal NEG [facility] Comment on above: Performed By: #### D AU #### [facility] [address] [place], [place] [id number] Hay Stacker: Ruiz Vences MD Cocaine Metabolite Negative Normal [facility] Comment on above: Performed By: #### D AU #### [facility] [address] [place], [facility] [address] [address] Hay Stacker: Ruiz Vences MD Methadone Ql (U) Negative Normal [facility] Comment on above: Performed By: #### D AU #### [facility] [address] [place], [facility] [address] [address] Hay Stacker: Ruiz Vences MD Methamphetamine, Ur Positive Abnormal [facility] Comment on above: Performed By: #### D AU #### [facility] [address] [place], [facility] [address] [address] Hay Stacker: Ruiz Vences MD Opiate(s), Ur Negative Normal [facility] Comment on above: Performed By: #### D AU #### [facility] [address] [place], [place] [id number] Hay Stacker: Ruiz Vences MD Oxycodone, Urine Negative Normal [facility] Comment on above: Performed By: #### D AU #### [facility] [address] [place] [address] Hay Stacker: Ruiz Vences MD Phencyclidine, Ur Negative Normal NEG [facility] Comment on above: Performed By: #### D AU #### [facility] [address] [place] [address] [place] [address] Hay Stacker: Ruiz Vences MD Propoxyphene,Urine Negative Normal NEG [facility] Comment on above: Performed By: #### D AU #### [facility] [address] [place] [address] Dr. [place], [place] [id number] Hay Stacker: Ruiz Vences MD Tricyclic antidepressants Screen Ql (U) Negative Normal NEG [facility] Comment on above: Result Comment: Drug screen results are to be used for medical purposes only. All positive results are unconfirmed. Testing for employment or legal uses should be sent to a reference laboratory for confirmation. Performed By: #### D AU #### [facility] [address] [place] [address] Dr. [place], [place] [id number] Hay Stacker: Ruiz Vences MD Interpretive Info NOT REPORTED Normal [facility] Comment on above: Performed By: #### D AU #### [facility] [address] [place] [address] Dr. [place], [place] [phone] Hay Stacker: Ruiz Vences MD MDMA, Urine NOT REPORTED Normal NEG [facility] Comment on above: Performed By: #### D AU #### [facility] [address] [place] [address] Dr. [place], [place] [phone] Hay Stacker: Ruiz Vences MD Urine Drug ScreenOrdered By: Rush Bullock on 02-02-2021 Amphetamine Screen, Ur Negative NEGATIVE [facility] [employer] Work Phone: Barbiturate Screen, Ur Negative NEGATIVE [facility] [employer] Work Phone: Benzodiazepine Screen, Urine Negative NEGATIVE [facility] [employer] Phone: Buprenorphine Urine Negative NEGATIVE [facility] Phone: Cannabinoid Scrn, Ur Positive Abnormal NEGATIVE [facility] [employer] Phone: Cocaine Metabolite, Urine Negative NEGATIVE [facility] Work Phone: Interpretation and review of laboratory results Abnormal [facility] Work Phone: MDMA, Urine NOT REPORTED NEGATIVE [facility] Work Phone: Methadone Screen, Urine Negative NEGATIVE [facility] Work Phone: Methamphetamine, Urine Positive Abnormal NEGATIVE [facility] Work Phone: Opiates, Urine Negative NEGATIVE [facility] Work Phone: Oxycodone Screen, Ur Negative NEGATIVE [facility] Work Phone: Phencyclidine, Urine Negative NEGATIVE [facility] Work Phone: Propoxyphene, Urine Negative NEGATIVE [facility] Work Phone: Test Information NOT REPORTED [facility] Work Phone: Tricyclic Antidepressants, Urine Negative NEGATIVE [facility] Work Phone: Comment on above: Drug screen results are to be used for medical purposes only. All positive results are unconfirmed. Testing for employment or legal uses should be sent to a reference laboratory for confirmation. [facility] Work Phone: Drug Scr, Abuse, Uron 2020 Amphetamine(s),Ur Negative Normal NEG [facility] Comment on above: Performed By: #### D AU #### [facility] [address] [place] [address] Hay Stacker: Ruiz Vences MD Barbiturate(s),Ur Negative Normal NEG [facility] Comment on above: Performed By: #### D AU #### [facility] [address] [place] [address] Hay Stacker: Ruiz Vences MD Benzodiazepine(s) Negative Normal NEG [facility] Comment on above: Performed By: #### D AU #### [facility] [address] [place], [place] [id number] Hay Stacker: Ruiz Vences MD Buprenorphrine, Ur Negative Normal NEG [facility] Comment on above: Performed By: #### D AU #### [facility] [address] [place], [place] [phone] Hay Stacker: Ruiz Vences MD Cannabinoid(s),Ur Positive Abnormal NEG [facility] Comment on above: Performed By: #### D AU #### [facility] [address] [place], [place] [id number] Hay Stacker: Ruiz Vences MD Cocaine Metabolite Positive Abnormal NEG [facility] Comment on above: Performed By: #### D AU #### [facility] [address] [place] [address] Dr. [place], [place] [id number] Hay Stacker: Ruiz Vences MD Methadone Ql (U) Negative Normal [facility] Comment on above: Performed By: #### D AU #### [facility] [address] [place] [address] Dr. [place], [place] [id number] Hay Stacker: Ruiz Vences MD Methamphetamine, Ur Negative Normal [facility] Comment on above: Performed By: #### D AU #### [facility] [address] [place] [address] Dr. [place], [place] [id number] Hay Stacker: Ruiz Vences MD Opiate(s), Ur Negative Normal [facility] Comment on above: Performed By: #### D AU #### [facility] [address] [place], [place] [id number] Hay Stacker: Ruiz Vences MD Oxycodone, Urine Negative Normal [facility]G [facility] Comment on above: Performed By: #### D AU #### [facility] [address] [place], [place] [id number] Hay Stacker: Ruiz Vences MD Phencyclidine, Ur Negative Normal [facility] Comment on above: Performed By: #### D AU #### [facility] [address] [place], [place] [id number] Hay Stacker: Ruiz Vences MD Propoxyphene,Urine Negative Normal NEG [facility] Comment on above: Performed By: #### D AU #### [facility] [address] [place], [place] [id number] Hay Stacker: Ruiz Vences MD Tricyclic antidepressants Screen Ql (U) Negative Normal NEG [facility] Comment on above: Result Comment: Drug screen results are to be used for medical purposes only. All positive results are unconfirmed. Testing for employment or legal uses should be sent to a reference laboratory for confirmation. Performed By: #### D AU #### [facility] [address] [place] [address] Dr. [place], [place] [id number] Hay Stacker: Ruiz Vences MD Interpretive Info NOT REPORTED Normal [facility] Comment on above: Performed By: #### D AU #### [facility] [address] [place] [address] Dr. [place], [place] [id number] Hay Stacker: Ruiz Vences MD MDMA, Urine NOT REPORTED Normal NEG [facility] Comment on above: Performed By: #### D AU #### [facility] [address] [place] [address] Dr. [place], [place] [id number] Hay Stacker: Ruiz Vences MD Urine Drug ScreenOrdered By: Rush Bullock on 12-29-2020 Amphetamine Screen, Ur Negative NEGATIVE [facility] [employer] Phone: Barbiturate Screen, Ur Negative NEGATIVE [facility] [employer] Work Phone: Benzodiazepine Screen, Urine Negative NEGATIVE [facility] [employer] Phone: Buprenorphine Urine Negative NEGATIVE [facility] [employer] Phone: Cannabinoid Scrn, Ur Positive Abnormal NEGATIVE [facility] [employer] Phone: Cocaine Metabolite, Urine Positive Abnormal NEGATIVE [facility] Work Phone: Interpretation and review of laboratory results Abnormal [facility] Work Phone: MDMA, Urine NOT REPORTED NEGATIVE [facility] Work Phone: Methadone Screen, Urine Negative NEGATIVE [facility] Work Phone: Methamphetamine, Urine Negative NEGATIVE [facility] Work Phone: Opiates, Urine Negative NEGATIVE [facility] Work Phone: Oxycodone Screen, Ur Negative NEGATIVE [facility] Work Phone: Phencyclidine, Urine Negative NEGATIVE [facility] Work Phone: Propoxyphene, Urine Negative NEGATIVE [facility] Work Phone: Test Information NOT REPORTED [facility] Work Phone: Tricyclic Antidepressants, Urine Negative NEGATIVE [facility] Work Phone: Comment on above: Drug screen results are to be used for medical purposes only. All positive results are unconfirmed. Testing for employment or legal uses should be sent to a reference laboratory for confirmation. Vital Signs Date Time Vital Sign Value Performing Clinician Cheyenne vega 07-12-2023 07:00-0400 Body temperature 97.6 [degF] [facility] 07-12-2023 07:00-0400 Diastolic blood pressure 81 mm[Hg] [facility] 07-12-2023 07:00-0400 Heart rate 96 /min [facility] 07-12-2023 07:00-0400 Respiratory rate 16 /min [facility] 07-12-2023 07:00-0400 SaO2% (BldA) [Mass fraction] 93 % [facility] 07-12-2023 07:00-0400 Systolic blood pressure 118 mm[Hg] [facility] 07-10-2023 14:45-0400 Body height 157.48 cm [facility] 07-09-2023 09:00-0400 Body weight 73 kg [facility] 09-18-2022 15:38-0500 Body temperature 98 [degF] [facility] 09-18-2022 15:38-0500 Diastolic blood pressure 76 mm[Hg] [facility] 09-18-2022 15:38-0500 Heart rate 92 /min [facility] 09-18-2022 15:38-0500 Respiratory rate 18 /min [facility] 09-18-2022 15:38-0500 SaO2% (BldA) [Mass fraction] 98 % [facility] 09-18-2022 15:38-0500 Systolic blood pressure 111 mm[Hg] [facility] 09-18-2022 13:12-0500 Body weight 69.3 kg [facility] 09-15-2022 12:04050 Body height 157.48 cm [facility] Encounters Encounter Date Encounter Type Care Provider Facility Start: 07-09-2023 End: 07-12-2023 Evaluation and management of inpatient Ryne Ron Facility:[facility] Start: 07-09-2023 End: 07-12-2023 Evaluation and management of inpatient [facility] Work Phone: Start: 07-08-2023 ambulatory Emilio Thomas acility:[facility] Start: 09-15-2022 End: 09-18-2022 Evaluation and management of inpatient [facility] MD Work Phone: Start: 08-21-2021 End: 08-21-2021 Emergency department patient visit RITESH OLIVAS Facility:[facility] Start: 02-02-2021 End: 02-03-2021 [facility]ulatory [facility] Start: 02-02-2021 End: 02-02-2021 Subsequent hospital visit by physician [facility] Start: 12-29-2020 End: 12-30-2020 ambulatory [facility] Start: 12-29-2020 End: 12-29-2020 Subsequent hospital visit by physician [facility] Procedures Date Procedure Procedure Detail Performing Clinician Start: 02-02-2021 Drug screen class list a Rush Bullock MD Work Phone: Start: 12-29-2020 Drug screen class list a Rush Bullock MD Work Phone: Plan of Treatment Date Care Activity Detail Author Start: 07-12-2023 [facility] Start: 07-09-2023 Referral to [facility] Start: 07-09-[address] [facility] Start: 09-18-2022 [facility] Start: 09-15-2022 Referral to [facility] Start: 09-15-[address] [facility] Start: 09-15-2022 [facility] Start: 05-11-2021 Influenza vaccination Flu vacc ine (Season Ended) [employer] Work Phone: Start: 1980 COVID-19 Vaccine (1) COVID-19 Vaccin e (1) [employer] Phone: Start: 1976 COVID-19 Vaccine (1) COVID-19 Vaccin e (1) [employer] Phone: Patient Education Depression, Ad ult (DC) [facility] [place] Instructions [facility] Work Phone: Patient referral [facility] Work Phone: Immunizations Immunization Date Immunization Notes Care Provider Fa cility 07-10-2023 influenza, injectabl e, quadrivalent, preservative free [facility] 10-22-2020 influenza, injectabl e, quadrivalent, preservative free [facility] Payers Date Payer Category Payer Medicare [id number] 2023 Self-pay [id number] 2014 Medicare [id number] 1964 Unknown [id number] 1964 Unknown [id number] [id number] 1964 Unknown [id number] [id number] Medicaid Medicaid [id number] Medicare Medicare Outpatient [id number] Unknown [id number] [id number] Unknown [id number] [id number] [id number] Social History Date Type Detail Facility Tobacco smoking stat [facility] Unknown if ever smoked [employer] Phone: Start: 1965 Sex Assigned At Not on file [employer] Phone: Start: 09-16-2022 End: 07-09-2023 Tobacco smoking status MEIS Smoker (finding) [facility] Start: 1965 Sex Assigned At Female F [facility] Goals Date Patient Goal Desired Activity /State Functional Status Date Assessment Result Facility 07-12-2023 Functional status Patient at Baseline [facility] [employer] Work Phone: 09-18-2022 Functional status Patient at Baseline [facility] [employer] Work Phone: Mental Status Date Assessment Result Facility 07-12-2023 Cognitive function Cognitive Sta tus Patient at Baseline [facility] [employer] Work Phone: 09-18-2022 Cognitive function Cognitive Sta tus Patient at Baseline [facility] [employer] Work Phone: Hospital Discharge instructions 07-12-2023 Note Date & Type Note Facility 07-12-2023 Hospital Discharg e instructions Additional Instructions Important Contact Information You can call [facility] Inpatient [facility] at [phone] any time day or night if you have emergent questions or question regarding discharge instructions. If at any time you are feeling an increase in your psychiatric symptoms, call your physician or behavioral healthcare provider. If any time you have thoughts of harming yourself or others contact one of the following: Call 8-8 (available 02/04) Crisis Text Line (available 02/04) text 4HOPE to [phone] [facility] Hope Line (available 8 a.m. Midnight) call [phone] ([phone]) Regular Diet No Activity Restrictions [facility] Work Phone: Progress note 07-11-2023 Note Date & Type Note Facility 07-11-2023 Progress note Note Date/Time July 11, 2023 1:10pm [facility] [address] [place] [address] Psychiatry Progress Note Signed Patient: Leatha Sykes MR#: [id number] : 1965 Acct:[id number] Age/Sex: 57 / F Adm Date: 3 Loc: 1S Room: [address] [place] [address] Type : ADM IN Attending Dr: Ryne Velasquez MD Copies to: ~ Date of Service: 07/11/2023 Subjective Subjective Narrative: Ms. Sykes states she is feeling much better today. weight and test bar clerk services were used to obtain all history today. She still complains of shoulder pain and states ibuprofen and Tylenol do not do anything for the pain. States she has to have an MRI before she can begin any treatment which she plans to hopefully havedone after discharge. States her appetite has been appropriate and noticed improvement in her sleep since the increase in trazodone. Rates her anxiety 5/10and depression 2/10. She states she is happy to be back on her home regimen of medications and has noticed improvement. States her anxiety is bothersome in themorning and requests to have her inhaler ready upon waking up as that is what she is used to doing at home. She states it makes her anxious not having her inhaler right away and she feels like she cannot breathe. Denies suicidal and homicidal ideations. Denies visual and auditory hallucinations. She has been able to talk to her daughter, Shayy, and states she is trying to be more supportive. States she will have a ride available on discharge and her ex, Jonas,is taking care of her car in hopes to get it fixed soon. Once fixed she plans toleave her living situation. Overall she feels much better than on admission and her main complaint is her shoulder pain. Mental Status Exam: Appearance: grossly normal Mental Status: mental status grossly normal Mood: euthymic Affect: euthymic Speech and Movement: movement normal. Uses ASL for speech. Attitude: cooperative Thought Process: normal Thought Content: Denied hallucinations, suicidality, and homicidality. Insight: fair Judgment: fair Patient was personally seen by me on the day of the encounter. I reviewed the history and performed the augustin elements of the physical examination. I formulated the plan of care and confirmed this with the medical student as notedbelow. Exam Physical Exam Vital Signs: Temp Pulse Resp BP Pulse Ox O2 Del Method 98.5 F 90 18 132/82 96 Room Air 07/11/23 07:30 07/11/23 07:30 07/11/23 07:30 07/11/23 07:30 07/11/23 07:30 07/11/23 07:30 Assessment/Plan Assessment/Plan (1) Major depressive disorder, recurrent: Qualifiers: Active/Remission status: currently active Major depression episode severity: severe Psychotic features: without psychotic features Qualified Code(s): F33.2 - Major depressive disorder, recurrent severe without psychotic features Code(s): F33.9 - Major depressive disorder, recurrent, unspecified Status: Acute Plan Patient doing better at this time and denied any suicidal thoughts or homicidal thoughts. She is also future oriented Plan for discharge tomorrow Continue Celexa 20 mg daily. Continue Buspar 15 mg PO TID. Continue Wellbutrin 150 mg PO QAM Continue Trazodone 100 mg PO QHS Begin Tramadol 50 mg PO BID PRN for shoulder pain. Continue to monitor mental status Encourage group participation and medication compliance. Risk benefits alternatives explained Documented By: Ryne Velasquez MD 07/11/23 2535 Signed By: <Electronically signed by Ryne Velasquez MD> 07/11/23 1310 [facility] Work Phone: Progress note 07-10-2023 Note Date & Type Note Facility 07-10-2023 Progress note Note Date/Time July 10, 2023 2:13pm [facility] [address] [place] [address] Psychiatry Progress Note Signed Patient: Leatha Sykes MR#: [id number] : 1965 Acct:[id number] Age/Sex: 57 / F Adm Date: 3 Loc: Room: [address] [place] [address] Type : ADM IN Attending Dr: Ryne Velasquez MD Copies to: ~ Date of Service: 07/10/2023 Subjective Subjective Narrative: Ms. Sykes states she is feeling lousy today. ASL interpretation services wasused to obtain all history today. She complains of a sore throat and cough. States Mucinex has helped her in the past and requesting some to help with her symptoms. She states she did not sleep well and would like to increase the Trazodone. She also states her appetite has been low but she noticed loss of taste the past 2.5 weeks which she thinks is contributing to her lack of appetite. She rates her anxiety 7/10 and states her depression goes up and down a lot. She is not sure why she feels so down and states her anxiety and depression has worsened since admission. States her former home medication regimen worked very well for her but she started having transportation issues and could not roller picker her prescriptions any more. She denies suicidal ideation and states she feels safe here. She was excited to report that her friend is currently working on her car to fix it and feels once her car is ready she will feel comfortable to pack her belongings at her house and leave her roommates. She denies homicidal thoughts towards her roommates at this time and just feels bitter towards the way they treat her. She states she has been able to talk withher daughter Shayy but she has not been super supportive and tells her to stop being depressed and stop crying. She states she does not talk to siblingsand does not really have anyone else for support. Mental Status Exam: Appearance: grossly normal Mental Status: mental status grossly normal Mood: dysthymic mood Affect: dysphoric affect Speech and Movement: speech and movement normal and speech clear Attitude: cooperative Thought Process: normal Thought Content: Denied hallucinations, suicidality, and homicidality. Insight: fair Judgment: fair Patient was personally seen by me on the day of the encounter. I reviewed the history and performed the augustin elements of the physical examination. I formulated the plan of care and confirmed this with the medical student as notedbelow. Exam Physical Exam Vital Signs: Temp Pulse Resp BP Pulse Ox O2 Del Method 98.2 F 89 20 114/79 95 Room Air 07/09/23 23:30 07/09/23 23:30 07/09/23 23:30 07/09/23 23:30 07/09/23 23:30 07/09/23 23:30 Assessment/Plan Assessment/Plan (1) Major depressive disorder, recurrent: Qualifiers: Active/Remission status: currently active Major depression episode severity: severe Psychotic features: without psychotic features Qualified Code(s): F33.2 - Major depressive disorder, recurrent severe without psychotic features Code(s): F33.9 - Major depressive disorder, recurrent, unspecified Status: Acute Plan Patient presenting due to concern for depression, suicidal thoughts and homicidal thoughts. She had plans of stabbing herself and her roommate Continue Celexa 20 mg daily. Restart Buspar 15 mg PO TID. Restart Wellbutrin 150 mg PO QAM Increase Trazodone 100 mg PO QHS Continue to monitor mental status Encourage group participation and medication compliance. Risk benefits alternatives explained Documented By: Ryne Velasquez MD 07/10/23 1010 Signed By: <Electronically signed by Ryne Velasquez MD> 07/10/23 [facility] Work Phone: History and physical note 07-09-2023 Note Date & Type Note Facility 07-09-2023 History and physi nakul note Note Date/Time July 09, 2023 1:14pm [facility] [address] [place] [address] Psychiatry H&P Signed Patient: Leatha Sykes MR#: [id number] : 1965 Acct:[id number] Age/Sex: 57 / F Adm Date: 3 Loc: 1S Room: [address] [place] [address] Type: ADM IN Attending Dr: Ryne Velasquez MD Copies to: NON STAFF Ryne Velasquez MD~ Date of Service: 07/09/2023 HPI History of Present Illness History of present illness: Ms. Sykes is a 57 year old female who presented due to concern for depression,suicidal thoughts and homicidal thoughts. She had thoughts of using a knife to cut herself and her roommate. Upon assessment, headlight adjuster is used with Chadian sign language. Patient reported that she has had issues with her roommate. She stated that he uses cocaine and she stopped using cocaine a long time ago. She reported that she feels very overwhelmed and confused at the house. She does admit to having somesuicidal thoughts and homicidal thoughts. She reported that those thoughts are little bit better now. She reported that as of now she will most likely go backto the home and try to get her car fixed so that she can save up some money by working with [employer]. She stated that she does use marijuana every day. She reported that she has been dealing with some anxiety and the marijuana helps her. Past psych history: Major depressive disorder Past hospitalizations: History past psychiatric hospitalizations Past suicide attempts: Denies Family psych history: Unknown Previous medications: Wellbutrin and BuSpar Alcohol and drug use: Marijuana use Living: With roommate Employment: Unemployed Review of symptoms: Constitutional: Denies chills and Denies fever(s) Eyes: Denies change in vision ENT: Denies abnormal hearing Cardiovascular: Denies chest pain Respiratory: Denies chest congestion and Denies cough Gastrointestinal: Denies change in bowel habits Genitourinary: Denies dysuria Musculoskeletal: Denies atrophy and Denies myalgias Integumentary/Breasts: Denies dry skin Neurologic: Denies abnormal gait and Denies abnormal movements Psychiatric: Reports depression, anxiety, suicidal thoughts and homicidal thoughts Physical exam: Const: cooperative Nutritional Appearance: average body habitus Orientation: alert, awake and oriented x3 HEENT: Head normal to inspection, hearing grossly normal bilaterally, external nose normal, face symmetric Eyes: appearance normal, both eyes and all related structures, sclerae normal Neck: normal visual inspection and full ROM Resp: normal respiratory effort, able to speak in complete sentences and symmetric chest movement Cardio: regular rate GI: normal to inspection and non-distended : deferred Skin: no rashes or lesions noted Neuro: CNI: Normal olfaction CNI: normal olfaction CNII: Visual hernandez intact, CNIII,IV,: EOM intact, no nystagmus. Pupils equal, round, reactive to light andaccommodation, CNV: Sensation intact to light touch, CNVII: Raises eyebrows, smile/frown, puff out cheeks symmetrically, CNVIII: Hearing intact bilaterally, CNIX,X: Voice normal, soft palate elevation normal, symmetrical, CNXI: Shoulder shrug strong, equal bilaterally, CNXII: Tongue protrusion midline, movement symmetrical. Extrem: normal to inspection and full ROM Mental Status Exam: Appearance: grossly normal Mental Status: mental status grossly normal Mood: dysthymic mood Affect: dysphoric affect Speech and Movement: speech and movement normal and speech clear Attitude: cooperative Thought Process: normal Thought Content: Denied hallucinations, reported homicidality, reported suicidality Insight: fair Judgment: fair [facility] Medical History Anxiety Bronchitis Carpal tunnel syndrome of left wrist Depression Hearing impaired Murmur Smoker Surgical History History of hand surgery History of hysterectomy History of joint replacement History of shoulder surgery Total knee replacement status Family History Mother Cancer Social History Smoking Status: Current every day smoker Tobacco Type: cigarettes Substance Use Type: Marijuana and Cocaine Substance Abuse Comment: pt. denies using cocaine but tested positive Meds Medications and Allergies Allergies Penicillins Allergy (Severe, Verified 10/21/20 04:08) Difficulty Breathing Home Medications albuterol sulfate 90 mcg/actuation aerosol inhaler 2 puff inhalation Q6H PRN sob09/15/22 [History Confirmed 07/09/23] Exam Physical Exam Vital Signs: Temp Pulse Resp BP Pulse Ox O2 Del Method 97.8 F 101 H 18 127/63 94 L Room Air 07/09/23 07:30 07/09/23 07:30 07/09/23 07:30 07/09/23 07:30 07/09/23 07:30 07/09/23 07:30 Assessment/Plan (1) Major depressive disorder, recurrent: Qualifiers: Active/Remission status: currently active Major depression episode severity: severe Psychotic features: without psychotic features Qualified Code(s): F33.2 - Major depressive disorder, recurrent severe without psychotic features Code(s): F33.9 - Major depressive disorder, recurrent, unspecified Status: Acute Plan Patient presenting due to concern for depression, suicidal thoughts and homicidal thoughts. She had plans of stabbing herself and her roommate We will restart Celexa 20 mg daily Continue to monitor mental status Encourage group participation and medication compliance Risk benefits alternatives explained Documented By: Ryne Velasquez MD 07/09/23 1311 Signed By: <Electronically signed by Ryne Velasquez MD> 07/09/23 1314 [facility] Work Phone: Discharge summary 09-18-2022 Note Date & Type Note Facility 09-18-2022 Discharge summary Note Date/Time September 18, 2022 9:34am [facility] [address] [place] [address] Discharge Summary Signed Patient: Leatha Sykes MR#: [id number] : 1965 Acct:[id number] Age/Sex: 56 / F Adm Date: 3 Loc: 1S Room: [address] [place] [address]: Jm Thrasher MD Copies to: NON STAFF Emilio Thrasher MD~ Providers Date of Discharge: 09/18/22 Discharging Provider: Jm Thrasher Primary Care Provider: NON STAFF Consults: 09/15/22 12:42 Consult to Case Management Routine Discharge Diagnosis (1) Major depressive disorder, recurrent: (2) Suicidal intent: Final Diagnosis Final Discharge Diagnosis: MDD Summary Hospital Course Hospital course: Ms. Sykes (patient's ASL name sign is finger-spelled P on opposite shoulder)is a 56 year old female with past history of depression and SI who presents withworsening depression and a suicide attempt by overdose on Tylenol.? She planned to take a large handful, but most of them spilled when she was interrupted by her daughter, so she only took 3 pills.? She states if her daughter hadn't been around, she would have taken many more. Today, patient is visibly upset and tearful at beginning of interview. ? An [employer] video patroller service was utilized to facilitate communication.? Her thinking is tangential and somewhat difficult to redirect.? She is crying and repeatedly states that she wants to . She had just seen a vision of her late coming through the window and inviting her to come home with him to [facility] , and she became upset when told it was a hallucination.? Apparently she sees her very often and talks to him daily since his over 20 yearsago.? She denies seeing other people or things that are not there.? She has discussed her visual hallucinations with others and said they just do not understand love. She endorses hearing upbeat rock music often in her right ear that may just be in my head . Leatha reports her depression worsening because of her home situation and unsupportive family.? She has continual bad dreams and wants desperately to joinher in .? Her financial situation has worsened since supporting artemio Cespedes, daughter's boyfriend, and grandchildren. They are not willing to provide for her now that she has been evicted, and she feels heartbroken and lonely. She reports counseling has not been helpful in the past. She sees Dr. Mayorga for mental health care and is very happy with her. Ms. Sykes reported that she is feeling good after adding Wellbutrin. She has been talking to her family about her living situation and stated that her daughter is working on getting her an apartment.? She reported that she feels ready to go home.? She likes Wellbutrin and stated that it has helped with her depression.? She denied any suicidal thoughts.? She denied any hallucinations.? She denied any side effects to the current medications as well.? She stated thather family has found her apartment and her daughter will be close by him able tokeep an eye on her, The patient is currently functioning at her baseline. She is doing fairly well. She reports improved mood and appetite, improved ability to enjoy certain activities, reduction of feelings of worthlessness or guilt, and improved focus and concentration. She continues to struggle with anxiety occasionally. She is tolerating her medications without difficulty. She denied current SI/HI and verbalized the intent to notify staff if she has such thoughts. She denied any suicidal or self-injurious behaviors. I did talk with her about the importance of medication compliance as she believes that medications made a gooddifference. Sleep and appetite are ok. Appearance: dressed casually Mental Status: mental status grossly normal Mood: Euthymic mood Affect: Normal affect Speech and Movement: speech and movement normal and speech clear Attitude: cooperative Thought Process: normal Thought Content: Denied hallucinations, no homicidality and no suicidality Insight: fair Judgment: fair Impulse control: fair Discharge disposition Home with her family Time spent discussing smoking cessation with patient: more than 10 minutes Condition Condition at Discharge: Fair Status at Discharge Functional status at discharge: independent ambulation Time Spent with Patient Time spent providing/coordinating discharge services (# min): 62 Exam Physical Exam Vital Signs: Temp Pulse Resp BP Pulse Ox O2 Del Method 98.1 F 79 18 117/78 98 Room Air 09/18/22 07:52 09/18/22 07:52 09/18/22 07:52 09/18/22 07:52 09/18/22 07:52 09/18/22 09:02 Discharge Plan Discharge Plan Activity: No Activity Restriction Diet: Regular Prescriptions: New bupropion HCl 150 mg Tablet Extended Release 24 Hr 150 mg PO QAM 15 Days Qty: 15 2RF Continued fluticasone propionate 50 mcg/actuation spray,suspension 2 spray INTRANASAL DAILY citalopram 40 mg Tablet 40 mg PO DAILY trazodone 150 mg Tablet 150 mg PO QHS aspirin 81 mg Tablet 81 mg PO DAILY doxycycline hyclate 100 mg Tablet 100 mg PO BID Rx Instructions: x10 days, needs 17 more doses buspirone 15 mg Tablet 15 mg PO TID hydroxyzine pamoate 25 mg Capsule 25 mg PO TID PRN (Reason: Anxiety) albuterol sulfate 90 mcg/actuation HFA aerosol inhaler 2 puff INHALATION Q6H PRN (Reason: sob) Documented By: Emilio Thrasher MD 3 0934 Signed By: <Electronically signed by Emilio Thrasher MD> 09/18/22 0936 [facility] Work Phone: Progress note 09-17-2022 Note Date & Type Note Facility 09-17-2022 Progress note Note Date/Time September 17, 2022 12:29pm [facility] [address] [place] [address] Psychiatry Progress Note Signed Patient: Leatha Sykes MR#: [id number] : 1965 Acct:[id number] Age/Sex: 56 / F Adm Date: 3 Loc: Room: [address] [place] [address] Type : ADM IN Attending Dr: Jm Thrasher MD Copies to: ~ Date of Service: 09/17/2022 Subjective Subjective Narrative: Ms. Sykes reported that she is feeling good today. She reported that she feels ready to go home. She likes Wellbutrin and stated that it has helped withher depression. She denied any suicidal thoughts. She denied any hallucinations. She denied any side effects to the current medications as well. She stated that her family has found her apartment and her daughter will be close by him able to keep an eye on her. Mental Status Exam: Appearance: grossly normal Mental Status: mental status grossly normal Mood: Improving mood Affect: Improving affect Speech and Movement: speech and movement normal and speech clear Attitude: cooperative Thought Process: normal Thought Content: Denied hallucinations, no homicidality, improving suicidality Insight: fair Judgment: fair Exam Physical Exam Vital Signs: Temp Pulse Resp BP Pulse Ox O2 Del Method 97.6 F 78 17 107/75 95 Room Air 09/17/22 07:27 09/17/22 07:27 09/17/22 07:27 09/17/22 07:27 09/17/22 07:27 09/17/22 09:00 Assessment/Plan Assessment/Plan (1) Major depressive disorder, recurrent: Qualifiers: Active/Remission status: currently active Major depression episode severity: severe Psychotic features: without psychotic features Qualified Code(s): F33.2 - Major depressive disorder, recurrent severe without psychotic features Code(s): F33.9 - Major depressive disorder, recurrent, unspecified Status: Acute (2) Suicidal intent: Code(s): R45.851 - Suicidal ideations Status: Acute Plan Patient reported that symptoms have been improving. She is tolerating her current medications. She stated that she has not been hallucinating or experiencing suicidal thoughts Continue current medications Continue to monitor mental status Encourage group participation and medication compliance Risk benefits alternatives explained Documented By: Ryne Velasquez MD 09/17/221227 Signed By: <Electronically signed by Ryne Velasquez MD> 09/17/22 7209 [facility] Work Phone: History and physical note 09-16-2022 Note Date & Type Note Facility 09-16-2022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
--- NOTE | 2023-09-29 16:27 | XR_ITS ---
The [address] [address] Patient Name: TOR SYKES MRN: [id number] date: 1965 Sex: F Assigned Patient Location: ER Current Patient Location: ED.MAIN Accession/Order Number: [id number] Exam Date: 09/29/2023 16:40 Report Date: 09/29/2023 17:21 At the request of: ROBBIE MENCHACA Procedure: XR shoulder LT min 2V EXAM: XR shoulder LT min 2V, XR chest 2V REASON FOR EXAM: Female, 57 years, left shoulder pain. TECHNIQUE: 2 views of the chest, 3 views of the left shoulder are performed. COMPARISON: Chest radiograph 01/02/2016, shoulder images 07/18/2023. FINDINGS: The lungs are expanded and clear. Normal pleura. There is lobulation of the right hemidiaphragm. Normal size heart. Normal mediastinum and jonna. Normal visualized pulmonary arteries. Normal visualized aortic arch and descending thoracic aorta. Normal visualized thoracic spine. Widening of the left acromioclavicular joint is again noted. There is no fracture or dislocation. There is no demonstrated abnormality of the visualized soft tissue structures of the upper abdomen. XR/XR shoulder LT min 2V IMPRESSION: No acute process in the chest. Unchanged widening of the left acromioclavicular joint, which is a chronic finding, seen on studies dating back to 07/02/2015. No acute abnormality within the left shoulder. Electronically authenticated by: RITESH SNELL Date: 09/29/2023 17:21
--- NOTE | 2023-09-29 16:27 | XR_ITS ---
The [place] [id number] Patient Name: TOR SYKES MRN: [id number] date: 1965 Sex: F Assigned Patient Location: ER Current Patient Location: ED.MAIN Accession/Order Number: [id number] Exam Date: 09/29/2023 16:40 Report Date: 09/29/2023 17:21 At the request of: ROBBIE MENCHACA Procedure: XR chest 2V EXAM: XR shoulder LT min 2V, XR chest 2V REASON FOR EXAM: Female, 57 years, left shoulder pain. TECHNIQUE: 2 views of the chest, 3 views of the left shoulder are performed. COMPARISON: Chest radiograph 01/02/2016, shoulder images 07/18/2023. FINDINGS: The lungs are expanded and clear. Normal pleura. There is lobulation of the right hemidiaphragm. Normal size heart. Normal mediastinum and jonna. Normal visualized pulmonary arteries. Normal visualized aortic arch and descending thoracic aorta. Normal visualized thoracic spine. Widening of the left acromioclavicular joint is again noted. There is no fracture or dislocation. There is no demonstrated abnormality of the visualized soft tissue structures of the upper abdomen. XR/XR chest 2V IMPRESSION: No acute process in the chest. Unchanged widening of the left acromioclavicular joint, which is a chronic finding, seen on studies dating back to 07/02/2015. No acute abnormality within the left shoulder. Electronically authenticated by: RITESH SNELL Date: 09/29/2023 17:21
--- NOTE | 2023-09-29 16:29 | ED.UPPEXIN1 ---
HPI - Extremity Injury (Upper) General Chief Complaint: Extremity Injury, Upper Stated Complaint: upper extremity injury Time Seen by Provider: 09/29/23 16:11 Source: patient and family Mode of arrival: walk-in Limitations: no limitations History of Present Illness HPI narrative: Patient was playing with the [employer] and injured the left shoulder and left upper chest wall. This occurred 3 days ago. No relief with tylenol, motrin & naproxen. Pain worse with any movement of the left shoulder. Pain is better when she presses on the left upper chest wall. She admits to a daily cough - no worse than what is typical for her. No fever or chills. No skin rash. Related Data Home Medications Medication Instructions Recorded Confirmed albuterol sulfate 90 mcg/actuation 2 puff inhalation Q4H PRN 05/30/23 09/29/23 aerosol inhaler shortness of breath or wheezing bupropion HCl 150 mg 24 hr tablet, 150 mg PO DAILY 05/30/23 09/29/23 extended release buspirone 15 mg tablet 15 mg PO TID 07/18/23 09/29/23 citalopram 20 mg tablet 20 mg PO DAILY 07/18/23 09/29/23 trazodone 100 mg tablet 100 mg PO .nightly PRN insomnia 07/18/23 09/29/23 bupropion HCl 150 mg tablet,12 hr 150 mg PO DAILY 09/29/23 09/29/23 sustained-release Previous Rx's Medication Instructions Recorded hydrocodone 5 mg-acetaminophen 325 1 tab PO Q6H PRN pain 4 days #12 09/29/23 mg tablet tabs nabumetone 750 mg tablet 750 mg PO BID PRN pain #14 tabs 09/29/23 Allergies Allergy/AdvReac Type Severity Reaction Status Date / Time Penicillins Allergy Severe Verified 09/29/23 16:20 [facility] Social History Smoking status: Current every day smoker Exam Narrative Exam Narrative: Nurses notes and vital signs reviewed and patient is not hypoxic. afebrile General: Well-appearing and in no apparent distress. Skin: Warm, dry, no pallor noted. No rash. Head: Normocephalic, atraumatic. Neck: Supple, non-tender. Cardiovascular: Regular Rate and Rhythm without murmur, gallop or rub. Respiratory: No accessory muscle use or respiratory distress. Lungs are clear to auscultation, no wheezing, rales or rhonchi Chest Wall: Left upper anterior chest wall tenderness without crepitus or subcutaneous emphysema. Back: No midline thoracic or lumbar vertebral tenderness. No CVA tenderness Musculoskeletal: Diffuse anterior and superior left shoulder tenderness. Decreased left shoulder ROM due to pain. Left elbow, forearm, wrist, hand with normal ROM. No upper extremity edema/swelling Neurological: A&O x4. No cranial nerve dysfunction observed. No truncal ataxia. Moves all extremities. Sensation intact. Psychiatric: Cooperative and interactive. Normal mood and affect. Constitutional Vital Signs, click to edit/add: Last Vital Signs Temp 98.0 F 09/29/23 16:15 Pulse 90 09/29/23 16:15 Resp 20 09/29/23 16:15 BP 116/87 09/29/23 16:15 Pulse Ox 97 09/29/23 16:15 O2 Del Method Room Air 09/29/23 16:15 Course Vital Signs Vital signs: Vital Signs Temperature 98.0 F 09/29/23 16:15 Pulse Rate 90 09/29/23 16:15 Respiratory Rate 20 09/29/23 16:15 Blood Pressure 116/87 09/29/23 16:15 Pulse Oximetry 97 09/29/23 16:15 Oxygen Delivery Method Room Air 09/29/23 16:15 Temperature 98.0 F 09/29/23 16:15 Pulse Rate 90 09/29/23 16:15 Respiratory Rate 20 09/29/23 16:15 Blood Pressure 116/87 09/29/23 16:15 Pulse Oximetry 97 09/29/23 16:15 Oxygen Delivery Method Room Air 09/29/23 16:15 MDM - Extremity Injury (Upper) MDM Narrative Medical decision making narrative: Patient sent for xrays of the left shoulder and chest. She was given IM Solumedrol and oral [place] for pain. Xrays did not reveal any acute abnormalities. Patient informed of results and she was discharged home with prescriptions for [place] and Relafen for pain. She was referred to Dr Taylor for follow up - Sunday 10/01 @ 930am - but she said that she cannot make any Sunday appointments before 2pm. She was given referral information for Dr Stepanic for follow up. Imaging Data CXR & Shoulder XR: Radiologist's impression: ITS Impressions Chest X-Ray 09/29/23 16:27 IMPRESSION: No acute process in the chest. Unchanged widening of the left acromioclavicular joint, which is a chronic finding, seen on studies dating back to 07/02/2015. No acute abnormality within the left shoulder. Electronically authenticated by: RITESH SNELL Date: 09/29/2023 17:21 Shoulder X-Ray 09/29/23 16:27 IMPRESSION: No acute process in the chest. Unchanged widening of the left acromioclavicular joint, which is a chronic finding, seen on studies dating back to 07/02/2015. No acute abnormality within the left shoulder. Electronically authenticated by: RITESH SNELL Date: 09/29/2023 17:21 Discharge Plan Discharge Chief Complaint: Extremity Injury, Upper Clinical Impression: Acute chest wall pain, Left shoulder pain Patient Disposition: Home, Self-Care Time of Disposition Decision: 17:34 Mode of Transportation: Private Vehicle Prescriptions / Home Meds: New nabumetone 750 mg tablet 750 mg PO BID PRN (Reason: pain) Qty: 14 0RF hydrocodone-acetaminophen 5-325 mg tablet 1 tab PO Q6H PRN (Reason: pain) 4 Days Qty: 12 0RF Rx Instructions: ICD 10 = S46 No Action bupropion HCl 150 mg tablet extended release 24 hr 150 mg PO DAILY albuterol sulfate 90 mcg/actuation HFA aerosol inhaler 2 puff INHALATION Q4H PRN (Reason: shortness of breath or wheezing) bupropion HCl 150 mg tablet sustained-release 12 hr 150 mg PO DAILY citalopram 20 mg tablet 20 mg PO DAILY trazodone 100 mg tablet 100 mg PO .nightly PRN (Reason: insomnia) buspirone 15 mg tablet 15 mg PO TID Instructions: Shoulder Pain (ED), Chest Wall Pain (ED) Stand Alone Forms: Portal Instructions Referrals: Ifeanyi Orta, DO [Physician] - As soon as possible
--- NOTE | 2023-09-29 16:35 | PC.NURSE ---
Patient reports playing with grandchildren 3 days ago and has had pain to left shoulder/clavicle area since.
[2023-09-29] MEDS: HYDROCODONE/ACET 5-325 MG TABLET 1 TAB PO (17:22)
[2023-09-29] MEDS: METHYLPREDNISOLONE SOD SUCC PF 125 MG/2 ML VIAL IM (17:23)
== END 2023-09-29 17:58 | disposition home or self-care (01) ==
PROVIDERS: Emergency Provider Emergency Medicine
DX: R07.89 Other chest pain (principal); M25.512 Pain in left shoulder; F17.210 Nicotine dependence, cigarettes, uncomplicated; Z79.899 Other long term (current) drug therapy
CPT/HCPCS: 71046; 73030; 96372; 99285; J2930

== ENCOUNTER 2023-12-10 09:25 | Outpatient (OUT) | payer MEDICARE, MEDICAID, SELFPAY ==
--- NOTE | 2023-12-10 | XR_ITS ---
The [address] [address] Patient Name: TOR SYKES MRN: [id number] date: 1965 Sex: F Assigned Patient Location: Current Patient Location: Accession/Order Number: [id number] Exam Date: 12/10/2023 10:02 Report Date: 12/11/2023 06:53 At the request of: MAURICIO ZELAYA Procedure: XR shoulder LT min 2V PROCEDURE: XR shoulder LT min 2V HISTORY: LEFT SHOULDER PAIN ; chronic anterior medial shoulder pain COMPARISON: XR shoulder left 09/29/2023 FINDINGS: BONES:Prior resection of distal end of clavicle. Humeral head remains seated within the glenoid without appreciable articular irregularity or joint space narrowing. SOFT TISSUES:No visible soft tissue swelling. EFFUSION:None visible. OTHER: Negative. XR/XR shoulder LT min 2V IMPRESSION: 1. No acute bone abnormality or significant degenerative joint disease. 2. Stable prior surgical resection of distal end of left clavicle. Electronically authenticated by: MAURICIO LARSON Date: 12/11/2023 06:53
--- OUTSIDE RECORDS SUMMARY | 2023-12-10 09:28 | XMS_ITS | CCD ---
Author Organization [facility] Care Team Providers Care Sleep Medicine Physician Name Role Phone Unavailable Primary Care Provider UnavailRUSH Corbin Referring Unavailable RUSH BULLOCK Referring Unavailable RITESH OLIVAS Attending Unavailable RITESH OLIVAS Admitting Unavailable SELF, REFERRED Referring Unavailable RAJEEV AGUIRRE Primary Care Unavailable NON STAFF Primary Care Provider UnavailMD Jm Dunlap Admit Provider MD Jm Thrasher Attending Provider NON STAFF Primary Care Provider UnavailMD Ryne Rowland Admit Provider MD Ryne Velasquez Attending Provider NONE, XXXX Primary Care Physician Unavailab DO Chen Nelson Attending Unavailable Ryne Velasquez Attending Unavailable NON STAFF Primary Care Unavailable Ryne Velasquez Admitting Unavailable Emilio Thrasher Admitting Unavailab Emilio Romo Attending Unavailab le NON STAFF Primary Care Unavailable Allergies Allergy Classification Reported Allergen(s) Allergy Type Date of Onset Reaction(s) Facility (4 sources) Penicillins; Translations: [PENICILLINS] Propensity to adverse reactions (disorder) 9 Difficulty Breathing [facility] (2 sources) Penicillin; Translations: [penicillin] Drug Allergy Unknown (qualifier value) [facility] Medications Current Medications Medication Drug Class(es) Dates Sig (Normalized) Sig (Original) [id number] 200 actuat albuterol 0.09 mg/actuat metered dose [...] 23, 2020 1:00am September 15, 2022 2:04pm methocarbamol 500 mg oral tablet (1 source) Muscle Relaxant Start: 10-27-2023 End: 10-30-2023 take 1 tablet by mouth three times daily Robaxin 500 mg Tab 500 mg = 1 tab(s), Oral, TID, X 3 day(s), # 9 tab(s), Refills(s) 0 Start Date: 10/27/23 Stop Date: 10/30/23 Status: Ordered naproxen 500 mg oral tablet (1 source) Nonsteroidal Anti-inflammatory Drug Start: 10-27-2023 take 1 tablet by mouth twice daily as needed for pain Naprosyn 500 mg Tab 500 mg = 1 tab(s), Oral, BID, PRN for pain, # 20 tab(s), Refills(s) 0 Start Date: 10/27/23 Status: Ordered 24 hr nicotine 0.875 mg/hr transdermal system [...] recurrent, unspecified] Onset: 07-09-2023 10-21-2020 Chronic Other connective tissue disease (1 source) Hand pain; Translations: [Pain in right hand] Onset: 10-27-2023 Episodic Other nervous system disorders (1 source) Carpal tunnel syndrome; Translations: [Carpal tunnel syndrome, left upper limb] 07-12-2023 Chronic Other nervous system disorders (1 source) Carpal tunnel syndrome, left upper limb; Translations: [Carpal tunnel syndrome, left upper limb] Onset: 07-09-2023 Chronic Suicide and intentional self-inflicted injury (3 sources) Suicidal intent; Translations: [Suicidal ideations] 09-16-2022 Episodic Results Test Name Value Interpretation Reference Range Facility XR Hand 3+ Views Righton XR Hand 3+ Views Right Exam Date/Time: 10/27/2023 19:37 EST Reason for Exam: Pain, Non Traumatic Report IMPRESSION: No acute osseous findings. EXAMINATION/TECHNIQUE: XR Hand 3+ Views Right HISTORY: Right hand pain. COMPARISON: None RESULT: No evidence for acute fracture. No dislocation. Chronic appearing mild deformity of the fifth metacarpal neck. No radiographic evidence for osteomyelitis. Mild scattered degenerative changes with small osteophytes throughout the hand. Probable underlying decreased bone mineral density. No radiopaque foreign bodies. No other significant abnormality. Ordering Provider: Chen Sanchez FINAL REPORT Dictated: 10/28/2023 8:30 am Omar Hein MD Signed (Electronic Signature): 10/28/2023 8:30 am Signed by: Omar Hein MD Transcribed by: ESTELLE Technologist: JOHN Technical Comments Radiation Dose: Kajames in mGy = na DAP = na Normal [facility] Consent for Treatmenton 10-11 Consent for Treatment [id number] Normal [facility] Discharge Instructionson Discharge Instructions [id number] 0TIFF Normal [facility] ED Clinical Summaryon 2023 ED Clinical Summary [address] [address] ED Clinical Summary Person Information Name: LEATHA SYKES [facility]ani[facility] Age: 57 Years : 1965 Sex: Female Language: Czech PCP: NONE, XXXX Marital Status: Single Visit Id: Visit Reason: Hand pain-swelling; RIGHT HAND PAIN Speciality: Acuity: 4 Enc Type: Emergency Med Service: Emergency Arrival: 10/27/2023 18:58:00 Discharge: 10/27/2023 20:21:10 LOS: 000 01:23 Checkin: 10/27/2023 18:58:00 Checkout: 10/27/2023 20:21:10 Dispo Type: Home (Routine DC) EVENTS: Event Name Event Status Request Date/Time Start Date/Time Complete Date/Time Arrive Complete 10/27/2023 18:58:00 10/27/2023 18:58:00 10/27/2023 18:58:00 Document Home Meds Request 10/27/2023 18:58:00 Triage Complete 10/27/2023 18:58:00 10/27/2023 19:16:27 10/27/2023 19:16:27 Dr Exam Complete 10/27/2023 19:02:10 10/27/2023 19:02:10 10/27/2023 19:02:10 Registration Complete 10/27/2023 19:02:10 10/27/2023 19:03:19 10/27/2023 19:27:52 Bed Assign Complete 10/27/2023 19:03:19 10/27/2023 19:03:19 10/27/2023 19:03:19 RN Exam Complete 10/27/2023 19:03:19 10/27/2023 20:05:44 10/27/2023 20:05:44 X-Ray Complete 10/27/2023 19:18:21 10/27/2023 19:20:00 10/27/2023 19:37:07 Meds Admin Complete 10/27/2023 19:18:21 10/27/2023 19:24:48 Reg Complete Request 10/27/2023 19:27:52 Reg Bed Request Complete 10/27/2023 19:27:52 10/27/2023 19:27:52 10/27/2023 19:27:52 Wet Read Request 10/27/2023 19:37:07 Meds Admin Complete 10/27/2023 20:08:27 10/27/2023 20:19:10 Discharge Complete 10/27/2023 20:10:07 10/27/2023 20:21:14 10/27/2023 20:21:14 Transfer Complete 10/27/2023 20:21:14 10/27/2023 20:21:14 10/27/2023 20:21:14 ADDRESS: [address] [place] [id number] PHYS DOC NOTES: MEDICAL INFORMATION: Prescriptions Given: New Medications Printed Prescriptions methocarbamol (Robaxin 500 mg Tab) 1 Tablets By Mouth 3 times a day for 3 Days. Refills: 0. naproxen (Naprosyn 500 mg Tab) 1 Tablets By Mouth 2 times a day as needed for pain. Refills: 0. PATIENT EDUCATION INFORMATION: Instructions: Hand Pain Follow up: With: Address: When: Erick Tellez [address] [place] [phone] Business (1) In 3 days 10/30/2023 Comments: You can use the medication as prescribed as needed for pain. Please follow-up with your primary care doctor in addition to orthopedic doctor for further evaluation management. Please return to the ED for any new or worsening symptoms. With: Address: When: XXXX NONE , [place] In 3 days DIAGNOSIS: Hand pain, right Normal [facility] ED Note-Physicianon 10-27-19 ED Note-Physician Basic Information Time Seen: Chen Sanchez DO 10/27/2023 19:02 Chief Complaint pt lives in car, has had cold right hand for 2 days. states she can't stand the pain anymore, wearing 4 gloves. hand is red, palpable radial pulse. surgery on it in 2021. History of Present Illness Patient is a 57-year-old female presenting to the ED for evaluation of right hand pain. Patient states that she has been living in her car, for the last 2 days she has been having coldness in her right hand. Patient denies any falls or trauma. Has not taken anything at home for pain. Patient does have a previous surgery on her hand secondary to an injury 2 years ago. Review of Systems A 10 point review of systems is negative except as noted above. Medical and Surgical History: Reviewed and noted Social history: Lives at home Tobacco: Denies Physical Exam Vitals & Measurements T: 36.8 ?C(Oral) HR: 102(Peripheral) RR: 18 BP: 132/72 SpO2: 95% HT: 157.48 cm WT: 73 kg BMI: 29.44 General: Well developed, non toxic appearing, no acute distress HEENT: Head atraumatic, Mucosa moist, hearing grossly normal Neck: No JVD, tracheal deviation Cardiac: Regular rate, rhythm, no murmurs, or gallops, 2+ radial pulses Respiratory: Lungs clear to auscultation B/L, normal respiratory effort Extremities: Pain on palpation of the right hand along the fifth metacarpal, no obvious deformities, Neurologic: Alert and oriented Skin: No rashes or lesions Psych: Appropriate mood and behavior Medical Decision Making MEDICAL DECISION MAKING Number and Complexity of Problems Differential Diagnosis: [] [facility] Data External documents reviewed: [] My EKG interpretation: [] My CT interpretation: [] My X-ray interpretation: [] My Ultrasound interpretation: [] Decision rules/scores evaluated: [] Discussed with: [] Treatment and Disposition ED Course: Patient is a 57-year-old female presenting to the ED for evaluation of right hand pain. Patient is nontoxic and on arrival, no acute distress. X-ray of the hand is obtained patient is given naproxen in the ED for pain. Patient's x-ray shows degenerative changes otherwise no acute findings. Discussed findings with patient she is comfortable discharge home she is to follow-up with her orthopedic surgeon for further evaluation management. She is return to the ED for any new or worsening symptoms. Shared decision making: [] Code status: [] Assessment/Plan Hand pain, right (M79.641: Pain in right hand) Orders: acetaminophen-hydrocod one, 1 EA, Tab, Oral, Once, Stop date 10/27/23 20:08:00 EST, STAT, Start date 10/27/23 20:08:00 EST methocarbamol, 500 mg = 1 tab(s), Oral, TID, X 3 day(s), # 9 tab(s), Refills(s) 0 naproxen, 500 mg = 2 tab(s), Tab, Oral, Once, Stop date 10/27/23 19:18:00 EST, STAT, Start date 10/27/23 19:18:00 EST, 10/27/23 19:18:00 EST naproxen, 500 mg = 1 tab(s), Oral, BID, PRN for pain, # 20 tab(s), Refills(s) 0 XR Hand 3+ Views Right Medications Administered Given naproxen 250 mg Tab, 500 mg, Oral TO GO acetaminophen-hydrocod one 325 mg - 5 mg, 1 EA, Oral Disposition Plan Discharge Prescription List Prescriptions Naprosyn 500 mg Tab, 500 mg= 1 tab(s), Oral, BID, PRN Robaxin 500 mg Tab, 500 mg= 1 tab(s), Oral, TID Follow-up With When Contact Information Erick Geoff In 3 days 10/30/2023 EST [address] [place] [address] [facility] (1) Additional Instructions: You can use the medication as prescribed as needed for pain. Please follow-up with your primary care doctor in addition to orthopedic doctor for further evaluation management. Please return to the ED for any new or worsening symptoms. XXXX NONE In 3 days [place] Additional Instructions: Patient Education Hand Pain Problem List/Past Medical History Ongoing No qualifying data Historical No qualifying data Medications Inpatient naproxen 250 mg Tab, 500 mg= 2 tab(s), Oral, Once Home No active home medications Allergies penicillin (Unknown) Lab Results No qualifying data available. Diagnostic Results XR Hand 3+ Views Right * Preliminary * 10/27/23 19:45:01 NEGATIVE: No fracture, dislocation or other acute abnormality Read By: Chen Sanchez DO [facility] Comment on above: Result Comment: Elec tronically Signed By: Chen Sanchez DO.mikey\Date and Time Signed: 10/27/23 20:36 EST ED Patient Education Noteon 10-27-2023 ED Patient Education Note Orthopedics Hand Pain Many things can cause hand pain. Some common causes are: ? An injury. ? Repeating the same movement with your hand over and over (overuse). ? Osteoporosis. ? Arthritis. ? Lumps in the tendons or joints of the hand and wrist (ganglion cysts). ? Nerve compression syndromes (carpal tunnel syndrome). ? Inflammation of the tendons (tendinitis). ? Infection. Follow these instructions at home: Pay attention to any changes in your symptoms. Take these actions to help with your discomfort: Managing pain, stiffness, and swelling ? Take vkfm-zpa-ywfcotr and prescription medicines only as told by your health care provider. ? Wear a hand splint or support as told by your health care provider. ? If directed, put ice on the affected area: ? Put ice in a plastic bag. ? Place a towel between your skin and the bag. ? Leave the ice on for 20 minutes, 2?3 times a day. Activity ? Take breaks from repetitive activity often. ? Avoid activities that make your pain worse. ? Minimize stress on your hands and wrists as much as possible. ? Do stretches or exercises as told by your health care provider. ? Do not do activities that make your pain worse. Contact a health care provider if: ? Your pain does not get better after a few days of self-care. ? Your pain gets worse. ? Your pain affects your ability to do your daily activities. Get help right away if: ? Your hand becomes warm, red, or swollen. ? Your hand is numb or tingling. ? Your hand is extremely swollen or deformed. ? Your hand or fingers turn white or blue. ? You cannot move your hand, wrist, or fingers. Summary ? Many things can cause hand pain. ? Contact your health care provider if your pain does not get better after a few days of self care. ? Minimize stress on your hands and wrists as much as possible. ? Do not do activities that make your pain worse. This information is not intended to replace advice given to you by your health care provider. Make sure you discuss any questions you have with your health care provider. Document Revised: 12/14/2022 Document Reviewed: 12/15/2021 Elsevier Patient Education ? 2022 [employer] Normal [facility] ED Patient Summaryon 024 ED Patient Summary [address] [address] Patient Discharge Instructions Person Information Name: LEATHA SYKES Age: 57 Years Arrival Date: 10/27/2023 18:58:00 Discharge Diagnosis: Hand pain, right Primary Care Physician: NONE, XXXX Provider Information Primary Provider: Chen Sanchez DO Advanced Correspondence Representative:Xavier The exam and treatment you received in the Emergency Department were for an urgent problem and are not intended as complete care. It is important that you follow up with a doctor, nurse practitioner, or physician?s construction administrative assistant for ongoing care. If your symptoms become worse or you do not improve as expected and you are unable to reach your usual health care provider, you should return to the Emergency Department. We are available 24 hours a day. LEATHA SYKES has been given the following list of patient education materials, prescriptions and follow-up instructions: Follow-up Instructions: With: Address: When: Erick Tellez [address] [place] [address] Business (1) In 3 days 10/30/2023 Comments: You can use the medication as prescribed as needed for pain. Please follow-up with your primary care doctor in addition to orthopedic doctor for further evaluation management. Please return to the ED for any new or worsening symptoms. With: Address: When: XXXX [facility] , [place] In 3 days In the event that this physician does not participate in your insurance network, please consult with your insurance company to find a nearby participating provider. Patient Education Materials: Hand Pain A MESSAGE TO ALL PATIENTS REGARDING OPIOIDS PRESCRIPTION OPIOIDS: WHAT YOU NEED TO KNOW Prescription opioids can be used to help relieve jrkbczio-ia-lmzmsd pain and are often prescribed following a surgery or injury, or for certain health conditions. These medications can be an important part of the treatment but also come with serious risks. It is important to work with your healthcare provider to make sure you are getting the safest, most effective care. WHAT ARE THE RISKS AND SIDE EFFECTS OF OPIOID USE? Prescription opioids carry serious risks of addiction and overdose, especially with prolonged use. An opioid overdose, often marked by slowed breathing, can cause sudden . The use of prescription opioids can have a number of side effects as well, even when taken as directed: ? Tolerance?meaning you might need to take more of the medication for the same pain relief ? Physical dependence?meaning you have symptoms of withdrawal when a medication is stopped ? Increased sensitivity to pain ? Constipation ? Nausea, vomiting, and dry mouth ? Sleepiness and dizziness ? Confusion ? Depression ? Low levels of testosterone that can result in lower sex drive, energy, and strength ? Itching and sweating RISKS ARE GREATER WITH: ? History of drug misuse, substance use disorder, or overdose ? Mental health conditions (such as depression or anxiety) ? Sleep apnea ? Older age (65 years and older) ? Avoid alcohol while taking prescription opioids. Also, unless specifically advised by your health care provider, medications to avoid include: ? Benzodiazepines (such as Xanax or Valium) ? Muscle relaxants (such as Soma or Flexeril) ? Hypnotics (such as Ambien or Lunesta) ? Other prescription opioids KNOW YOUR OPTIONS Talk to your health care provider about ways to manage your pain that don?t involve prescription opioids. Some of these options may actually work better and have fewer risks and side effects. Options may include: ? Pain relievers such as acetaminophen, ibuprofen, and naproxen ? Some medication that are also used for depression or seizures ? Physical therapy and exercise ? Cognitive behavioral therapy, a psychological, goal-directed approach, in which patients learn how to modify physical, behavioral, and emotional triggers of pain and stress. IF YOU ARE PRESCRIBED OPIOIDS FOR PAIN: ? Never take opioids in greater amounts or more often than prescribed. ? Follow up with your primary health care provider. o Work together to create a plan on how to manage your pain. o Talk about ways to help manage your pain that don?t involve prescription opioids. o Talk about any and all concerns and side effects. ? Help prevent misuse and abuse o Never sell or share prescription opioids. o Never use another person?s prescription opioids. ? Store prescription opioids in a secure place and out of reach of others (this may include visitors, children, friends, and family). ? Safely dispose of unused prescription opioids: Find your community drug take-back program or your pharmacy mail-back program, or flush them down the toilet, following guidance from the Food and Drug Administration (www.fda.gov/Drugs/Res ourcesForYou). ? Visit www.cdc.gov (more content not included)... Normal [facility] Cholesterol [Mass/volume] in Serum or PlasmaOrdered By: Ryne Velasquez on 07-09-2023 Cholesterol [Mass/Vol] 161 mg/dL 140-200 [facility] Comment on above: Chol less than 200 m g/dl low riskChol 201-239 mg/dl borderline riskChol 240 mg/dl and greater high risk Cholesterol in LDL Calc [Mas s/Vol]Ordered By: Ryne Velasquez on 07-09-2023 Cholesterol in LDL [Mass/Vol] 70 mg/dL 0-100 [facility] Comment on above: LDL ATP III CLASSIFI CATIONLDL less than 100 mg/dL OptimalLDL 100-129 mg/dL Near or above optimalLDL 130-159 mg/dL Borderline highLDL 160-189 mg/dL HighLDL greater than 189 mg/dL Very high Cholesterol in VLDL Calc [Ma ss/Vol]Ordered By: Ryne Velasquez on 07-09-2023 Cholesterol in VLDL [Mass/Vol] 40 mg/dL [facility] ECG 12 lead ECGon 07-09-2023 ECG 12 lead ECG [facility] [place] [address] Electrocardiograph Report Signed Patient: Leatha Sykes MR#: [id number] : 1965 Acct:[id number] Age/Sex: 57 / F ADM Date: 07/09/23 Loc: Room: [address] [place] [address] Type: ADM IN Attending Dr: Ryne Velasquez [...] ECGs available Confirmed by LUIS ENRIQUE LOW [facility] ([id number]) on 07/09/2023 11:43:26 AM Referred By: Electronically Signed By:DIRK DIXON MD [facility] Transcribed By: MUS Signed By Dirk Dixon MD, [facility] 07/09/23 1143 Normal [facility] Lipid Panelon 07-09-2023 Cholesterol [Mass/Vol] 161 mg/dL Normal 140-200 [facility] Comment on above: Result Comment: Chol less than 200 mg/dl low risk Chol 201-239 mg/dl borderline risk Chol 240 mg/dl and greater high risk Performed By: #### L IPID, TSH3 wRFLX #### [facility] [address] Cholesterol in HDL [Mass/Vol] 51 mg/dL Normal 23-92 [facility] Comment on above: Result Comment: HDL CHOL ATP-III CLASSIFICATION Cardiovascular Risk HDL > or equal to 60 mg/dL LOW HDL < 40 mg/dL HIGH Performed By: #### L IPID, TSH3 wRFLX #### [facility] [address] [place] [address] [place] Cholesterol.total/Chol esterol in HDL [Mass ratio] 3.2 {ratio} Normal <5.0 [facility] Comment on above: Performed By: #### L IPID, TSH3 wRFLX #### [facility] [address] [place], [place] [id number] [facility] LDL Cholesterol,Calculated 70 mg/dL Normal 0-100 [facility] Comment on above: Result Comment: LDL ATP III CLASSIFICATION LDL less than 100 mg/dL Optimal LDL 100-129 mg/dL Near or above optimal LDL 130-159 mg/dL Borderline high LDL 160-189 mg/dL High LDL greater than 189 mg/dL Very high Performed By: #### L IPID, TSH3 wRFLX #### [facility] [address] [place], [place] [id number] [place] Triglyceride w/Reflex 200 mg/dL High 0-149 [facility] Comment on above: Result Comment: TRIG ATP III CLASSIFICATION TRIG less than 150 mg/dL Normal TRIG 150-199 mg/dL Borderline high TRIG 200-500 mg/dL High TRIG greater than 500 mg/dL Very high Standard traceable to the Center for Disease Conrtrol and Prevention (CDC) test method. Performed By: #### L IPID, TSH3 wRFLX #### [facility] [address] [place] [address] VLDL CHOLESTEROL 40 mg/dL Normal [facility] Comment on above: Performed By: #### L IPID, TSH3 wRFLX #### [facility] [address] [place] [address] Serum or plasma high density lipoprotein (HDL) cholesterol measurementOrdered By: Ryne Velasquez on 07-09-2023 Cholesterol in HDL [Mass/Vol] 51 mg/dL 23-92 [facility] Comment on above: HDL CHOL ATP-III CLA SSIFICATION Cardiovascular RiskHDL > or equal to 60 mg/dL LOWHDL < 40 mg/dL HIGH Serum or plasma total choles terol/high density lipoprotein (HDL) cholesterol mass ratOrdered By: Ryne Velasquez on 07-09-2023 Cholesterol.total/Chol esterol in HDL [Mass ratio] 3.2 {ratio} <5.0 [facility] Thyroid Stim Hormone w/Rflxo n 07-09-2023 Thyroid Stim Hormone w/Rflx 3.99 u[iU]/mL Normal 0.45-5.33 [facility] Comment on above: Result Comment: PERF ORMED BY: [place] [address] PATHOLOGIST GLUE SPREADER WINIFRED MOYER M.D. Performed By: #### L IPID, TSH3 wRFLX #### [facility] [address] [place] [address] Thyrotropin [Units/volume] i n Serum or PlasmaOrdered By: Ryne Velasquez on 07-09-2023 TSH Qn 3.99 m[IU]/L 0.45-5.33 [facility] Triglyceride [Mass/volume] i n Serum or PlasmaOrdered By: Ryne Velasquez on 07-09-2023 Triglyceride [Mass/Vol] 200 mg/dL 0-149 [facility] Comment on above: TRIG ATP III CLASSIF ICATIONTRIG less than 150 mg/dL NormalTRIG 150-199 mg/dL Borderline highTRIG 200-500 mg/dL High TRIG greater than 500 mg/dL Very highStandard traceable to the Center for Disease Conrtrol and Prevention (CDC) test method. Cholesterol [Mass/volume] in Serum or PlasmaOrdered By: Emilio Thrasher on 09-16-2022 Cholesterol [Mass/Vol] 155 mg/dL 140-200 [facility] Comment on above: Chol less than 200 m g/dl low riskChol 201-239 mg/dl borderline riskChol 240 mg/dl and greater high risk Cholesterol in LDL Calc [Mas s/Vol]Ordered By: Emilio Thrasher on 09-16-2022 Cholesterol in LDL [Mass/Vol] 70 mg/dL 0-100 [facility] Comment on above: LDL ATP III CLASSIFI CATIONLDL less than 100 mg/dL OptimalLDL 100-129 mg/dL Near or above optimalLDL 130-159 mg/dL Borderline highLDL 160-189 mg/dL HighLDL greater than 189 mg/dL Very high Cholesterol in VLDL Calc [Ma ss/Vol]Ordered By: Emilio Thrasher on 09-16-2022 Cholesterol in VLDL [Mass/Vol] 34 mg/dL [facility] No Panel InformationOrdered By: Emilio Thrasher on 09-16-2022 25-Hydroxy Vitamin D Total 38.9 ng/mL 30-100 [facility] Comment on above: VITAMIN D STATUS 25( [place])VITAMIN D RANGE (ng/mL) Deficient <20 Insufficient 20 to <30Sufficient 30 to 100Reference: Wili MF,Melina ACOSTA, Kiesha QUIGLEY, et al. Evaluation,treatment, and prevention of vitamin D deficiency; an Endocrine Society clinical practice guideline. JCEM. 2010; 96(7):1911-30. Serum or plasma high density lipoprotein (HDL) cholesterol measurementOrdered By: Emilio Thrasher on 09-16-2022 Cholesterol in HDL [Mass/Vol] 51 mg/dL 35-85 [facility] Comment on above: HDL CHOL ATP-III CLA SSIFICATION Cardiovascular RiskHDL > or equal to 60 mg/dL LOWHDL < 40 mg/dL HIGH Serum or plasma total choles terol/high density lipoprotein (HDL) cholesterol mass ratOrdered By: Emilio Thrasher on 09-16-2022 Cholesterol.total/Chol esterol in HDL [Mass ratio] 3.0 {ratio} <5.0 [facility] TSH DL <= 0.005 mIU/L QnOrde red By: Emilio Thrasher on 09-16-2022 TSH Qn 3.00 m[IU]/L 0.45-5.33 [facility] Triglyceride [Mass/volume] i n Serum or PlasmaOrdered By: Emilio Thrasher on 09-16-2022 Triglyceride [Mass/Vol] 170 mg/dL 35-149 [facility] Comment on above: TRIG ATP III CLASSIF ICATIONTRIG less than 150 mg/dL NormalTRIG 150-199 mg/dL Borderline highTRIG 200-500 mg/dL High TRIG greater than 500 mg/dL Very highStandard traceable to the Center for Disease Conrtrol and Prevention (CDC) test method. HAND RIGHT 3 [facility] 1 HAND RIGHT 3 [facility] Department of Radiology [address] [place] [id number] ======== Patient Name: LEATHA SYKES : [...] fifth metacarpals. No acute abnormality. Electronically signed: Alexys Molina. Transcribed by: [email or web address], User Resident: Electronically Signed by: ALEXYS MOLINA @ 08/17/2021 09:39 AM Normal [facility] Comment on above: Order Comment: Evalu ate HAND RIGHT 3 VWSon HAND RIGHT 3 VWS [facility] Department of Radiology [address] [place] [id number] ======== Patient Name: LEATHA SYKES : 1965 Sex: F Age: Race: White Pt. Location: 84 Patient Status: D Ordered Date: 06/21/2021 2:05:00 PM Completed Date: 06/21/2021 02:04 PM Requesting Provider: ALEX MOTA Attending Provider: ALEX MOTA Report Copy To: Signs & Symptoms: S62.308A Unsp fracture of oth metacarpal bone, init for clos fx I10 History: Webb Comments: evaluate Exam: HAND RIGHT 3 VWS ======== HAND RIGHT 3 S 06/21/2021 2:04 PM CLINICAL INDICATIONS: S62.308A Unsp [...] of the distal fifth metacarpal. Approved by:Blake Isidro 8:03 AM. I, Timi Roy,have reviewed the image(s) and agree with the findings in this report. Electronically signed: Timi Roy. Transcribed by: [email or web address], User Resident: BLAKE PIMENTEL Electronically Signed by: TIMI ROY @ 06/23/2021 09:09 AM I personally read this/these film(s) with this resident Normal [facility] Comment on above: Order Comment: evalu ate HAND RIGHT 3 [facility] 1 HAND RIGHT 3 [facility] Department of Radiology [address] [place] [phone] ======== Patient Name: LEATHA SYKES : 1965 Sex: F Age: Race: White Pt. Location: 84 Patient Status: O Ordered Date: 06/07/2021 2:10:00 [...] fixation. Electronically signed: Dustin Lin. Transcribed by: [email or web address], User Resident: Electronically Signed by: DUSTIN LIN @ 06/07/2021 04:13 PM Normal [facility] Comment on above: Order Comment: evalu ate HAND RIGHT 3 [facility] 1 HAND RIGHT 3 [facility] Department of Radiology [address] [place] [id number] ======== Patient Name: LEATHA SYKES: 1965 Sex: F Age: Race: White Pt. Location: 84 Patient Status: O Ordered Date: 05/09/2021 7:35:00 AM Completed Date: 05/09/2021 07:54 AM Requesting Provider: MARCELO FRITZ Attending Provider: MARCELO FRITZ Report Copy To: Signs & Symptoms: S62.308A Unsp fracture of oth metacarpal bone, init for clos fx I10 History: Comments: Evaluate Exam: HAND RIGHT 3 VWS ======== HAND RIGHT 3 VWS 05/09/2021 7:54 AM CLINICAL INDICATIONS: S62.308A Unsp [...] report. Electronically signed: Lisa Morales. Transcribed by: [email or web address], User Resident: CLARENCE BRISENO Electronically Signed by: LISA MORALES @ 05/09/2021 10:55 AM I personally read this/these film(s) with this resident Normal [facility] Comment on above: Order Comment: Evalu ate HAND RIGHT 2 VWSon 1 HAND RIGHT 2 [facility] Department of Radiology [address] [place] [id number] ======== Patient Name: LEATHA SYEKS : 1965 Sex: F Age: Race: White Pt. Location: OUTP Patient Status: O Ordered Date: 04/26/2021 7:15:00 AM Completed Date: 04/26/2021 01:05 PM Requesting Provider: MARCELO FRITZ Attending Provider: MARCELO FRITZ Report Copy To: Signs & Symptoms: Intra op. CRPP vs ORIF Right 5th Metacarpal. History: Comments: Intra op. CRPP vs ORIF Right 5th Metacarpal. Exam: HAND RIGHT 2 S ======== HAND RIGHT 2 VWS intraoperative fluoroscopy 04/26/2021 1:05 PM CLINICAL INDICATIONS: [...] Total cumulative dose 0.41 mGy. Approved by:Arash Coxanouon04/27/2021 1:29 PM. I, Christiano Nguyen,have reviewed the image(s) and agree with the findings in this report. Electronically signed: Christiano Nguyen. Transcribed by: [email or web address], User Resident: ARASH MARKS Electronically Signed by: CHRISTIANO NGUYEN @ 04/27/2021 01:58 PM I personally read this/these film(s) with this resident Normal [facility] Comment on above: Order Comment: Intra op. CRPP vs ORIF Right 5th Metacarpal. Operative Reporton Operative Report MR#: [id number] [facility] Pt. Name: eLatha Sykes Room #: 0C Discharge Date: Birthdate: [...] Marcelo Fritz M.D. 04/26/2021 05:31 P Marcelo Fritz M.D. I was present for the augustin and critical portions and I was otherwise immediately available to assist. Date Dict: 04/26/2021/01:12 P/Italia Carr MD Date Trans: 04/26/2021 02:39 P/mmo [id number] Normal [facility] POC GLUCOSE LABon 04-26-2021 Glucose [Mass/Vol] 110 mg/dL High 70-100 [facility] Comment on above: Performed By: #### 8 [id number] #### [facility] [address] *SARS-CoV-2 COVID-19on 04-25 SARS-CoV-2 (COVID-19) RNA MAYDA+probe Ql (Unsp spec) Not detected Normal Not Detected [facility] Comment on above: Order Comment: The A ptima SARS-CoV-2 assay is a nucleic acid amplification test intended for the qualitative detection of RNA from SARS-CoV-2 isolated and purified from nasopharyngeal (HAND SPRAYER),oropharyngeal (OP), nasal swab, sputum, and bronchoalveolar lavage (BAL) specimens from patients with signs and symptoms of infection who are suspected of COVID-19. Results are for the identification of SARS-CoV-2 RNA. The SARS-CoV-2 RNA is generally detectable during the acute phase of infection. The Aptima SARS-CoV-2 Assay on the itzat and itzat Fusion system is intended for use by laboratory personnel specifically instructed and trained in the operation of the [place] and itzat Fusion system. The Aptima SARS-CoV-2 assay is [...] information. Performed By: #### 3 1792 #### [facility] [address] [place] [address], [facility] APTTon 04-25-2021 aPTT Coag (Bld) [Time] 35.6 s High 25.0-35.0 [facility] Comment on above: Order Comment: PTT a lso ordered originally per [facility] PAT. Result Comment: ALL RESULTS MUST BE [...] THIS PURPOSE. Performed By: #### 5 6101, [id number] #### [facility] [address] [facility] [place] [address], [facility] BASIC METABOLIC PANELon 04-10 Calcium [Mass/Vol] 9.5 mg/dL Normal 8.6-10.3 [facility] Comment on above: Performed By: #### 0 0071 #### [facility] [address] [facility] [place] [address], [facility] Chloride [Moles/Vol] 103 mmol/L Normal 98-107 [facility] Comment on above: Performed By: #### 0 0071 #### [facility] [address] [facility] [place] [address], [facility] CO2 [Moles/Vol] 25 mmol/L Normal 21-31 [facility] Comment on above: Performed By: #### 0 0071 #### [facility] [address] [facility] [place] [address], [facility] Creatinine [Mass/Vol] 0.87 mg/dL Normal 0.60-1.20 [facility] Comment on above: Performed By: #### 0 0071 #### [facility] [address] [place] [address], [place] GFR/1.73 sq M.predicted among blacks MDRD (S/P/Bld) [Vol rate/Area] mL/min/{1.73_m2} Normal >60 [facility] Comment on above: Performed By: #### 0 0071 #### [facility] [address] [place] [address], [place] GFR/1.73 sq M.predicted among non-blacks MDRD (S/P/Bld) [Vol rate/Area] mL/min/{1.73_m2} Normal >60 [facility] Comment on above: Performed By: #### 0 0071 #### [facility] [address] [place] [address], [facility] Glucose [Mass/Vol] 94 mg/dL Normal 70-100 [facility] Comment on above: Performed By: #### 0 0071 #### [facility] [address] [place] [address], [facility] Potassium [Moles/Vol] 3.7 mmol/L Normal 3.5-5.1 [facility] Comment on above: Performed By: #### 0 0071 #### [facility] [address] [place] [address], [place] Sodium [Moles/Vol] 136 mmol/L Normal 136-145 [facility] Comment on above: Performed By: #### 0 0071 #### [facility] [address] [place] [address], [facility] Urea nitrogen [Mass/Vol] 16 mg/dL Normal 7-25 [facility] Comment on above: Performed By: #### 0 0071 #### [facility] [address] [place] [address], [place] CBC W/DIFFon 04-25-2021 ABS IMM GRANS 0.0 10*3/uL Normal 0.0-0.2 [facility] Comment on above: Performed By: #### 5 0103 #### [facility] [address] [facility] [place] [address], [facility] ABS NEUTROPHILS 5.5 10*3/uL Normal 1.6-7.6 [facility] Comment on above: Performed By: #### 5 0103 #### [facility] [address] [facility] [place] [address], [facility] Basophils (Bld) [#/Vol] 0.1 10*3/uL Normal 0.0-0.2 [facility] Comment on above: Performed By: #### 5 0103 #### [facility] [address] [facility] [place] [address], [facility] Basophils/100 WBC (Bld) 0.6 % Normal 0.0-1.0 [facility] Comment on above: Performed By: #### 5 0103 #### [facility] [address] [facility] [place] [address], [facility] Eosinophils (Bld) [#/Vol] 0.0 10*3/uL Normal 0.0-0.5 [facility] Comment on above: Performed By: #### 5 0103 #### [facility] [address] [facility] [place] [address], [facility] Eosinophils/100 WBC (Bld) 0.5 % Normal 0.0-6.0 [facility] Comment on above: Performed By: #### 5 0103 #### [facility] [address] [facility] [place] [place] [id number], [facility] Erythrocyte distribution width (RBC) [Ratio] 13.0 % Normal 11.5-15.0 [facility] Comment on above: Performed By: #### 5 3 #### [facility] [address] [place] [address], [facility] Hematocrit (Bld) [Volume fraction] 44.1 % Normal 36.0-45.0 [facility] Comment on above: Performed By: #### 5 0103 #### [facility] [address] [facility] [place] [place] [address], [facility] Hemoglobin (Bld) [Mass/Vol] 14.2 g/dL Normal 12.0-15.0 [facility] Comment on above: Performed By: #### 5 0103 #### [facility] [address] [facility] [place] [address], [facility] IMMATURE GRANS 0.2 % Normal 0.0-1.0 [facility] Comment on above: Performed By: #### 5 3 #### [facility] [address] [place] [address], [facility] Lymphocytes (Bld) [#/Vol] 2.6 10*3/uL Normal 1.2-4.0 [facility] Comment on above: Performed By: #### 5 0103 #### [facility] [address] [facility]. [address] Lymphocytes/100 WBC (Bld) 30.3 % Normal 20.0-45.0 [facility] Comment on above: Performed By: #### 5 0103 #### [facility] [address] [facility] [place] [address], [facility] MCH (RBC) [Entitic mass] 29.5 pg Normal 27.0-33.0 [facility] Comment on above: Performed By: #### 5 0103 #### [facility] [address] [facility] [place] [address], [facility] MCHC (RBC) [Mass/Vol] 32.2 g/dL Normal 32.0-35.0 [facility] Comment on above: Performed By: #### 5 3 #### [facility] [address] [place] [address], [facility] MCV (RBC) [Entitic vol] 91.5 fL Normal 82.0-98.0 [facility] Comment on above: Performed By: #### 0103 #### [facility] [address] [facility] [place] [address], [facility] Monocytes (Bld) [#/Vol] 0.3 10*3/uL Normal 0.1-1.0 [facility] Comment on above: Performed By: #### 102 #### [facility] [address] [facility] [place] [address], [facility] MONOS 3.8 % Low 5.0-12.0 [facility] Comment on above: Performed By: #### 102 #### [facility] [address] [place] [address], [facility] Neutrophils/100 WBC (Bld) 64.6 % Normal 40.0-72.0 [facility] Comment on above: Performed By: #### 102 #### [facility] [address] [facility] [place] [address], [facility] Nucleated RBC/100 WBC (Bld) [Ratio] 0 % Normal 0-0 [facility] Comment on above: Performed By: #### 102 #### [facility] [address] [facility] [place] [address], [facility] PLAT CNT 326 10*3/uL Normal 150-400 [facility] Comment on above: Performed By: #### 102 #### [facility] [address] [facility] [place] [address], [facility] RBC (Bld) [#/Vol] 4.82 10*6/uL Normal 3.80-5.00 [facility] Comment on above: Performed By: #### 102 #### [facility] [address] [place] [address], [facility] WBC (Bld) [#/Vol] 8.48 10*3/uL Normal 4.00-10.60 [facility] Comment on above: Performed By: #### 102 #### [address] [address] HAND RIGHT 3 [facility] HAND RIGHT 3 S [facility] Department of Radiology [address] [place] [phone] ======== Patient Name: LEATHA SYKES : 1965 Sex: F Age: Race: White Pt. Location: [facility] Patient Status: O Ordered Date: 04/25/2021 9:10:00 AM Completed Date: 04/25/2021 09:19 AM Requesting Provider: MARCELO FRITZ Attending Provider: MARCELO FRITZ Report Copy To: Signs & Symptoms: S62.308A Unsp fracture of oth metacarpal bone, init for clos fx I10 History: Ksenia Comments: Evaluate Exam: HAND RIGHT 3 [facility] ======== HAND RIGHT 3 S 04/25/2021 9:19 [...] prior imaging. Approved by:Arash Aranda04/25/2021 9:48 AM. I, Timi Roy,have reviewed the image(s) and agree with the findings in this report. Electronically signed: Timi Roy. Transcribed by: [email or web address], User Resident: RAASH MARKS Electronically Signed by: TIMI ROY @ 04/25/2021 11:17 AM I personally read this/these film(s) with this resident Normal [facility] Comment on above: Order Comment: Evalu ate HEMOGLOBIN A1Con 04-25-2021 Glucose [Moles/Vol] 120 mmol/L Normal [facility] Comment on above: Performed By: #### 3 1791 #### [facility] [address] [facility]. [address] HbA1c (Bld) [Mass fraction] 5.8 % Normal 4.0-6.0 [facility] Comment on above: Performed By: #### 3 1791 #### [facility] [address] [facility]. [address] PROTHROMBIN TIMEon INR Coag (PPP) [Relative time] 0.96 {INR} Normal 0.91-1.16 [facility] Comment on above: Result Comment: ACCC P [...] CHEST 1995;108:231S-246S. Performed By: #### 5 6101, [address] #### [address] PT Coag (PPP) [Time] 12.8 s Normal 12.3-14.8 [facility] Comment on above: Result Comment: ALL RESULTS MUST BE INTERPRETED WITH RESPECT TO BLOOD DRAWING ARTIFACT OR DILUTION ERROR OF ANTICOAGULANT AT THE TIME OF SAMPLING. Performed By: #### 5 6101, [id number] #### [address] WRIST RIGHT 3 VWSon 04-13-20 21 WRIST RIGHT 3 VWS [facility] Department of Radiology [address] [place] [phone] ======== Patient Name: LEATHA SYKES : 1965 Sex: F Age: Race: White Pt. Location: [facility] Patient Status: O Ordered Date: 04/13/2021 10:00:00 AM Completed Date: 04/13/2021 10:06 AM Requesting Provider: MARCELO FRITZ Attending Provider: MARCELO FRITZ Report Copy To: Signs & Symptoms: M25.531 Pain in right wrist I10 History: Webb Comments: Evaluate Exam: WRIST RIGHT 3 VWS [...] report. Electronically signed: Rush Saldana. Transcribed by: [email or web address], User Resident: RUSH MARKS Electronically Signed by: RUSH SALDANA @ 04/13/2021 03:07 PM I personally read this/these film(s) with this resident Normal [facility] Comment on above: Order Comment: Evalu ate Drug Scr, Abuse, Uron 2020 Amphetamine(s),Ur Negative Normal NEG [facility] Comment on above: Performed By: #### D AU #### [facility] [address] [place] [address] Heat Treat Operator: Ruiz Vences MD Barbiturate(s),Ur Negative Normal NEG [facility] Comment on above: Performed By: #### D AU #### [facility] [address] [place], [facility]83 Heat Treat Operator: Ruiz Vences MD Benzodiazepine(s) Negative Normal [facility] Comment on above: Performed By: #### D AU #### [facility] [address] [place], [facility]83 Heat Treat Operator: Ruiz Vences MD Buprenorphrine, Ur Negative Normal NEG [facility] Comment on above: Performed By: #### D AU #### [facility] [address] [place] [address] Heat Treat Operator: Ruiz Vences MD Cannabinoid(s),Ur Positive Abnormal NEG [facility] Comment on above: Performed By: #### D AU #### [facility] [address] [place] [id number] Heat Treat Operator: Ruiz Vences MD Cocaine Metabolite Negative Normal [facility] Comment on above: Performed By: #### D AU #### [facility] [address] [place] [address] [place] [place] [id number] Heat Treat Operator: Ruiz Vences MD Methadone Ql (U) Negative Normal [facility] Comment on above: Performed By: #### D AU #### [facility] [address] [place], [facility]83 Heat Treat Operator: Ruiz Vences MD Methamphetamine, Ur Positive Abnormal NEG [facility] Comment on above: Performed By: #### D AU #### [facility] [address] [place] [id number] Heat Treat Operator: Ruiz Vences MD Opiate(s), Ur Negative Normal [facility] Comment on above: Performed By: #### D AU #### [facility] [address] [place] [address] Heat Treat Operator: Ruiz Vences MD Oxycodone, Urine Negative Normal NEG [facility] Comment on above: Performed By: #### D AU #### [facility] [address] [place] [address] [place] [address] Heat Treat Operator: Ruiz Vences MD Phencyclidine, Ur Negative Normal NEG [facility] Comment on above: Performed By: #### D AU #### [facility] [address] [place] [address] [place] [address] Heat Treat Operator: Ruiz Vences MD Propoxyphene,Urine Negative Normal NEG [facility] Comment on above: Performed By: #### D AU #### [facility] [address] [place] [address] [place] [address] Heat Treat Operator: Ruiz Vences MD Tricyclic antidepressants Screen Ql (U) Negative Normal NEG [facility] Comment on above: Result Comment: Drug screen results are to be used for medical purposes only. All positive results are unconfirmed. Testing for employment or legal uses should be sent to a reference laboratory for confirmation. Performed By: #### D AU #### [address] [place] [address] Heat Treat Operator: Ruiz Vences MD Interpretive Info NOT REPORTED Normal [facility] Comment on above: Performed By: #### D AU #### [facility] [address] [place] [address] [place] [address] Heat Treat Operator: Ruiz Vences MD MDMA, Urine NOT REPORTED Normal NEG [facility] Comment on above: Performed By: #### D AU #### [facility] [address] [place] [address] [place] [address] Heat Treat Operator: Ruiz Vences MD Urine Drug ScreenOrdered By: Rush Bullock on 02-02-2021 Amphetamine Screen, Ur Negative NEGATIVE [facility] Work Phone: Barbiturate Screen, Ur Negative NEGATIVE [facility] Work Phone: Benzodiazepine Screen, Urine Negative NEGATIVE [facility] Work Phone: Buprenorphine Urine Negative NEGATIVE [facility] Work Phone: Cannabinoid Scrn, Ur Positive Abnormal NEGATIVE [facility] Work Phone: Cocaine Metabolite, Urine Negative NEGATIVE [facility] Work Phone: Interpretation and review of laboratory results Abnormal [facility] Work Phone: MDMA, Urine NOT REPORTED NEGATIVE [facility] Work Phone: Methadone Screen, Urine Negative NEGATIVE [facility] Work Phone: Methamphetamine, Urine Positive Abnormal NEGATIVE [facility] Work Phone: Opiates, Urine Negative NEGATIVE [facility] Work Phone: Oxycodone Screen, Ur Negative NEGATIVE [facility] Work Phone: Phencyclidine, Urine Negative NEGATIVE [facility] Work Phone: Propoxyphene, Urine Negative NEGATIVE [facility] Work Phone: Test Information NOT REPORTED [facility] Work Phone: Tricyclic Antidepressants, Urine Negative NEGATIVE [facility] Work Phone: Comment on above: Drug screen results are to be used for medical purposes only. All positive results are unconfirmed. Testing for employment or legal uses should be sent to a reference laboratory for confirmation. [facility] Work Phone: Drug Scr, Abuse, Uron 2020 Amphetamine(s),Ur Negative Normal NEG [facility] Comment on above: Performed By: #### D AU #### [facility] [address] [place] [address] Heat Treat Operator: Ruiz Vences MD Barbiturate(s),Ur Negative Normal NEG [facility] Comment on above: Performed By: #### D AU #### [facility] [address] [place] [address] Heat Treat Operator: Ruiz Vences MD Benzodiazepine(s) Negative Normal [facility] Comment on above: Performed By: #### D AU #### [facility] [address] [place] [address] Heat Treat Operator: Ruiz Vences MD Buprenorphrine, Ur Negative Normal NEG [facility] Comment on above: Performed By: #### D AU #### [facility] [address] [place] [address] Heat Treat Operator: Ruiz Vences MD Cannabinoid(s),Ur Positive Abnormal NEG [facility] Comment on above: Performed By: #### D AU #### [facility] [address] [place], [place] [address] Heat Treat Operator: Ruiz Vences MD Cocaine Metabolite Positive Abnormal NEG [facility] Comment on above: Performed By: #### D AU #### [facility] [address] [place] [address] Heat Treat Operator: Ruiz Vences MD Methadone Ql (U) Negative Normal NEG [facility] Comment on above: Performed By: #### D AU #### [facility] [address] [place] [address] Heat Treat Operator: Ruiz Vences MD Methamphetamine, Ur Negative Normal [facility] Comment on above: Performed By: #### D AU #### [facility] [address] [place], [place] [id number] Heat Treat Operator: Ruiz Vences MD Opiate(s), Ur Negative Normal NEG [facility] Comment on above: Performed By: #### D AU #### [facility] [address] [place], [place] [id number] Heat Treat Operator: Ruiz Vences MD Oxycodone, Urine Negative Normal NEG [facility] Comment on above: Performed By: #### D AU #### [facility] [address] [place], [place] [id number] Heat Treat Operator: Ruiz Vences MD Phencyclidine, Ur Negative Normal NEG [facility] Comment on above: Performed By: #### D AU #### [facility] [address] [place], [place] [id number] Heat Treat Operator: Ruiz Vences MD Propoxyphene,Urine Negative Normal NEG [facility] Comment on above: Performed By: #### D AU #### [facility] [address] [place], [place] [id number] Heat Treat Operator: Ruiz Vences MD Tricyclic antidepressants Screen Ql (U) Negative Normal NEG [facility] Comment on above: Result Comment: Drug screen results are to be used for medical purposes only. All positive results are unconfirmed. Testing for employment or legal uses should be sent to a reference laboratory for confirmation. Performed By: #### D AU #### [facility] [address] [place] [address] Dr. [place], [place] [id number] Heat Treat Operator: Ruiz Vences MD Interpretive Info NOT REPORTED Normal [facility] Comment on above: Performed By: #### D AU #### [facility] [address] [place], [place] [id number] Heat Treat Operator: Ruiz Vences MD MDMA, Urine NOT REPORTED Normal NEG [facility] Comment on above: Performed By: #### D AU #### [facility] [address] [place], [place] [id number] Heat Treat Operator: Ruiz Vences MD Urine Drug ScreenOrdered By: Rush Bullock on 12-29-2020 Amphetamine Screen, Ur Negative NEGATIVE [facility] Work Phone: Barbiturate Screen, Ur Negative NEGATIVE [facility] Work Phone: Benzodiazepine Screen, Urine Negative NEGATIVE [facility] Work Phone: Buprenorphine Urine Negative NEGATIVE [facility] Work Phone: Cannabinoid Scrn, Ur Positive Abnormal NEGATIVE [facility] Work Phone: Cocaine Metabolite, Urine Positive Abnormal NEGATIVE [facility] Work Phone: Interpretation and review of laboratory results Abnormal [facility] Work Phone: MDMA, Urine NOT REPORTED [facility]IVE [facility] Work Phone: Methadone Screen, Urine Negative NEGATIVE [facility] Work Phone: Methamphetamine, Urine Negative NEGATIVE [facility] Work Phone: Opiates, Urine Negative NEGATIVE [facility] Work Phone: Oxycodone Screen, Ur Negative NEGATIVE [facility] Work Phone: Phencyclidine, Urine Negative NEGATIVE [facility] Work Phone: Propoxyphene, Urine Negative NEGATIVE [facility] Work Phone: Test Information NOT REPORTED [facility] Work Phone: Tricyclic Antidepressants, Urine Negative NEGATIVE [facility] Work Phone: Comment on above: Drug screen results are to be used for medical purposes only. All positive results are unconfirmed. Testing for employment or legal uses should be sent to a reference laboratory for confirmation. Vital Signs Date Time Vital Sign Value Performing Clinician Facility 10-27-2023 19:03-0500 Body temperature 98.24 [degF] Chen Sanchez [facility] 10-27-2023 19:03-0500 Diastolic blood pressure 72 mm[Hg] Carleypareyes Sanchez [facility] 10-27-2023 19:03-0500 Heart rate 102 /min [facility] 10-27-2023 19:03-0500 Respiratory rate 18 /min Chen Sanchez [facility] 10-27-2023 19:03-0500 SaO2% (BldA) [Mass fraction] 95 % Chen Sanchez [facility] 10-27-2023 19:03-0500 Systolic blood pressure 132 mm[Hg] Carleypareyes Sanchez [facility] 07-12-2023 07:00-0400 Body temperature 97.6 [degF] [facility] 07-12-2023 07:00-0400 Diastolic blood pressure 81 mm[Hg] [facility] 07-12-2023 07:00-0400 Heart rate 96 /min [facility] 07-12-2023 07:00-0400 Respiratory rate 16 /min [facility] 07-12-2023 07:00-0400 SaO2% (BldA) [Mass fraction] 93 % [facility] 07-12-2023 07:00-0400 Systolic blood pressure 118 mm[Hg] [facility] 07-10-2023 14:45-0400 Body height 157.48 cm [facility] 07-09-2023 09:00-0400 Body weight 73 kg [facility] 09-18-2022 15:38-0500 Body temperature 98 [degF] [facility] 09-18-2022 15:38-0500 Diastolic blood pressure 76 mm[Hg] [facility] 09-18-2022 15:38-0500 Heart rate 92 /min [facility] 09-18-2022 15:38-0500 Respiratory rate 18 /min [facility] 09-18-2022 15:38-0500 SaO2% (BldA) [Mass fraction] 98 % [facility] 09-18-2022 15:38-0500 Systolic blood pressure 111 mm[Hg] [facility] 09-18-2022 13:12-0500 Body weight 69.3 kg [facility] 09-15-2022 12: Body height 157.48 cm [facility] Encounters Encounter Date Encounter Type Care Provider Facility Start: 10-27-2023 End: 10-27-2023 Emergency department patient visit DO Chen Sanchez Facility:[facility] Start: 10-27-2023 End: 10-27-2023 Emergency department patient visit Chen Sanchez [facility] Start: 10-09-2023 ambulatory Emilio Thomas acility:[facility] Start: 07-09-2023 End: 07-12-2023 Evaluation and management of inpatient Ryne Ron Facility:[facility] Start: 07-09-2023 End: 07-12-2023 Evaluation and management of inpatient [facility] Work Phone: Start: 09-15-2022 End: 09-18-2022 Evaluation and management of inpatient [facility] Work Phone: Start: 08-21-2021 End: 08-21-2021 Emergency department patient visit RITESH OLIVAS Facility:[facility] Start: 02-02-2021 End: 02-03-2021 ambulatory [facility] Start: 02-02-2021 End: 02-02-2021 Subsequent hospital visit by physician [facility] Start: 12-29-2020 End: 12-30-2020 ambulatory RUSH BULLOCK [facility] Start: 12-29-2020 End: 12-29-2020 Subsequent hospital visit by physician [facility] Procedures Date Procedure Procedure Detail Performing Clinician Start: 02-02-2021 Drug screen class list indira Bullock MD Work Phone: Start: 12-29-2020 Drug screen class list indira Bullock MD Work Phone: Plan of Treatment Date Care Activity Detail Author Start: 07-12-2023 [facility] Start: 07-09-2023 Referral to [facility] Start: 07-09-2023 Hospital admission [facility] Start: 09-18-2022 [facility] Start: 09-15-2022 Referral to [facility] Start: 09-15-2022 Hospital admission [facility] Start: 09-15-2022 [facility] Start: 05-11-2021 Influenza vaccination Flu vacc ine (Season Ended) [employer] Work Phone: Start: 1980 COVID-19 Vaccine (1) COVID-19 Vaccin e (1) [facility] Phone: Start: 1976 COVID-19 Vaccine (1) COVID-19 Vaccin e (1) [facility] Phone: Patient Education Depression, Ad ult (DC) [facility] [place] Instructions [facility] Work Phone: Patient referral [facility] Work Phone: Immunizations Immunization Date Immunization Notes Care Provider Fa cility 07-10-2023 influenza, injectabl e, quadrivalent, preservative free [facility] 10-22-2020 influenza, injectabl e, quadrivalent, preservative free [facility] Payers Date Payer Category Payer Medicaid [id number] 2023 Medicare [id number] 2023 Self-pay [id number] 2014 Medicare [id number] 1965 Unknown [id number] 2.16.8 [id number] 1965 Unknown [id number] 2.16.8 [id number] 1965 Unknown [id number] 2.16.8 [id number] 1965 Unknown [id number] 2.16.8 [id number] Medicare Medicare Outpatient [id number] Unknown [id number] 2.16.8 [id number] Unknown [id number] 2.16.8 [id number] Social History Date Type Detail Facility Tobacco smoking stat us [facility] Unknown if ever smoked [facility] Phone: Start: 1965 Sex Assigned At Not on file M [facility] Phone: Start: 09-16-2022 End: 07-09-2023 Tobacco smoking status IAIS Smoker (finding) [facility] Start: 1965 Sex Assigned At Female F [facility] Tobacco smoking status No Smokin g Status Entered [facility] Sex Assigned At Female [facility] Goals Date Patient Goal Desired Activity /State Functional Status Date Assessment Result Facility 10-27-2023 Functional Status N/A [facility] 07-12-2023 Functional status Patient at Baseline [facility] Work Phone: 09-18-2022 Functional status Patient at Baseline [facility] Work Phone: Mental Status Date Assessment Result Facility 07-12-2023 Cognitive function Cognitive Sta tus Patient at Baseline [facility] Work Phone: 09-18-2022 Cognitive function Cognitive Sta tus Patient at Baseline [facility] Work Phone: Clinical Notes 09-16-2022 to 10-27-2023 Note Date & Type Note Facility 10-27-2023 Hospital Discharg e instructions Patient Education 10/27/2023 20:21:15 Hand Pain Hand Pain Many things can cause hand pain. Some common causes are: An injury. Repeating the same movement with your hand over and over (overuse). Osteoporosis. Arthritis. Lumps in the tendons or joints of the hand and wrist (ganglion cysts). Nerve compression syndromes (carpal tunnel syndrome). Inflammation of the tendons (tendinitis). Infection. Follow these instructions at home: Pay attention to any changes in your symptoms. Take these actions to help with your discomfort: Managing pain, stiffness, and swelling Take ncas-oka-rhybhdv and prescription medicines only as told by your health care provider. Wear a hand splint or support as told by your health care provider. If directed, put ice on the affected area: ?Put ice in a plastic bag. ?Place a towel between your skin and the bag. ?Leave the ice on for 20 minutes, 2 3 times a day. Activity Take breaks from repetitive activity often. Avoid activities that make your pain worse. Minimize stress on your hands and wrists as much as possible. Do stretches or exercises as told by your health care provider. Do not do activities that make your pain worse. Contact a health care provider if: Your pain does not get better after a few days of self-care. Your pain gets worse. Your pain affects your ability to do your daily activities. Get help right away if: Your hand becomes warm, red, or swollen. Your hand is numb or tingling. Your hand is extremely swollen or deformed. Your hand or fingers turn white or blue. You cannot move your hand, wrist, or fingers. Summary Many things can cause hand pain. Contact your health care provider if your pain does not get better after a few days of self care. Minimize stress on your hands and wrists as much as possible. Do not do activities that make your pain worse. This information is not intended to replace advice given to you by your health care provider. Make sure you discuss any questions you have with your health care provider. Document Revised: 12/14/2022 Document Reviewed: 12/15/2021 Elsevier Patient Education 2022 [employer] Follow Up Care 10/27/2023 19:00:00 With:Erick Tellez Address: [address] [place] [id number] Business (1) When:10/30/2023 20:09:51 Comments:You can use the medication as prescribed as needed for pain. Please follow-up with your primary care doctor in addition to orthopedic doctor for further evaluation management. Please return to the ED for any new or worsening symptoms. With:XXXX NONE Address: [place] When:Within 3 Day(s) [facility] 10-27-2023 Evaluation + Plan note Extrac argelia from: Title:ED Note Author:Chen Sanchez DO Date :10/27/23 Hand pain, right (M79.641: P ain in right hand) Orders: acetaminophen-hydrocodone, 1 EA, Tab, Oral, Once, Stop date 10/27/23 20:08:00 EST, STAT, Start date 10/27/23 20:08:00 EST methocarbamol, 500 mg = 1 tab(s), Oral, TID, X 3 day(s), # 9 tab(s), Refills(s) 0 naproxen, 500 mg = 2 tab(s), Tab, Oral, Once, Stop date 10/27/23 19:18:00 EST, STAT, Start date 10/27/23 19:18:00 EST, 10/27/23 19:18:00 EST naproxen, 500 mg = 1 tab(s), Oral, BID, PRN for pain, # 20 tab(s), Refills(s) 0 XR Hand 3+ Views Right [facility]11-02-2023 Hospital Discharge instructions Additional Instructions Important Contact Information You can call [facility] at [phone] any time day or night if you have emergent questions or question regarding discharge instructions. If at any time you are feeling an increase in your psychiatric symptoms, call your physician or behavioral healthcare provider. If any time you have thoughts of harming yourself or others contact one of the following: Call (available 02/04) Crisis Text Line (available 02/04) text 4HOPE to [phone] [facility] Hope Line (available 8 a.m. Midnight) call [phone] ([phone]) Regular Diet [facility] Phone: 1(502) 775-755811-01-2023 Progress note Author Ryne Velasquez [facility] July 11, 2023 1:10pm Note Date/Time July 11, 2023 1 :10pm [facility] [address] [place] [address] Psychiatry Progress Note Signed Patient: Leatha Sykes MR#: [id number] : 1965 Acct:[id number] Age/Sex: 57 / F Adm Date: 3 Loc: Room: [address] [place] [address] Type : ADM IN Attending Dr: Ryne Velasquez MD Copies to: ~ Date of Service: 07/11/2023 Subjective Subjective Narrative: Ms. Sykes states she is feeling much better today. supervisor photoengraving services were used to obtain all history [...] explained Documented By: Ryne Velasquez MD 07/11/23 0945 Signed By: <Electronically signed by Ryne Velasquez MD> 07/11/23 1310 [facility] Work Phone: 1(275) 362-784310-31-2023 Progress note Author Ryne Velasquez [facility] July 10, 2023 2:13pm Note Date/Time July 10, 2023 2 :13pm [facility] [address] [place] [address] Psychiatry Progress Note Signed Patient: Leatha Sykes MR#: [id number] : 1965 Acct:[id number] Age/Sex: 57 / F Adm Date: 3 Loc: 1S Room: [address] [place] [address] Type : ADM IN Attending Dr: Ryne [...] started having transportation issues and could not worm picker her prescriptions any more. She denies [...] <Electronically signed by Ryne Velasquez MD> 07/10/23 1413 [facility] Work Phone: 1(141) 562-748310-30-2023 History and physical note Author Ryne Velasquez [facility] July 09, 2023 1:14pm Note Date/Time July 09, 2023 1 :14pm [facility] [address] [place] [address] Psychiatry H&P Signed Patient: Leatha Sykes MR#: [id number] : 1965 Acct:[id number] Age/Sex: 57 / F Adm Date: 3 Loc: Room: [address] [place] [address] Type: ADM IN Attending Dr: Ryne Velasquez MD Copies to: NON STAFF Ryne Velasquez MD~ Date of Service: 07/09/2023 HPI History of Present Illness History of present illness: Ms. Sykes is a 57 year old female who presented due to concern for depression,suicidal thoughts and homicidal thoughts. She had thoughts of using a knife to cut herself and her roommate. Upon assessment, supervisor lamp shades is used with Cook Islander sign language. Patient reported that she has [...] save up some money by working with [employer]. She stated that she does use marijuana [...] homicidality, reported suicidality Insight: fair Judgment: fair PMFSH Medical History Anxiety Bronchitis Carpal tunnel syndrome [...] alternatives explained Documented By: Ryne Velasquez MD 07/09/231310 Signed By: <Electronically signed by Ryne Velasquez MD> 07/09/234 [facility] Work Phone: 1(879) 595-577901-09-2023 Discharge summary Author Emilio yang [facility] September 18, 2022 9:36am Note Date/Time September 18, 2022 9: 34am [facility] [address] [place] [address] Discharge Summary Signed Patient: Leatha Sykes MR#: [id number] : 1965 Acct:[id number] Age/Sex: 56 / F Adm Date: 3 Loc: 1S Room: [address] [place] [address]: Jm Thrasher MD Copies to: [...] tearful at beginning of interview. ? An [employer] video automotive service assistant service was utilized to facilitate communication.? Her thinking is tangential and somewhat difficult to redirect.? She is crying and repeatedly states that she wants to . She had just seen a vision of her late coming through the window and inviting her to come home with him to [facility] , and she became upset when told [...] signed by Emilio Thrasher MD> 09/18/22 0936 [facility] Work Phone: 1(362) 537-468401-08-2023 Progress note Author Ryne Velasquez [facility] September 17, 2022 12:29pm Note Date/Time September 17, 2022 12 :29pm [facility] [address] [place] [address] Psychiatry Progress Note Signed Patient: Leatha Sykes MR#: [id number] : 1965 Acct:[id number] Age/Sex: 56 / F Adm Date: 3 Loc: Room: [address] [place] [address] Type : ADM IN Attending Dr: Jm [...] By: <Electronically signed by Ryne Velasquez MD> 09/17/221228 [facility] Work Phone: 1(576) 214-797501-07-2023 History and physical note Author Ryne Velasquez [facility] September 16, 2022 1:51pm Note Date/Time September 16, 2022 1: 04pm [facility] [address] [place] [address] Psychiatry H&P Signed Patient: Leatha Sykes MR#: [id number] : 1965 Acct:[id number] Age/Sex: 56 / F Adm Date: 3 Loc: 1S Room: [address] [place] [address] Type: ADM IN Attending Dr: Jm Thrasher [...] and tearful at beginning of interview. An [employer] video automotive service assistant service was utilized to facilitate communication. Her thinking is tangential and somewhat difficult to redirect. She is crying and repeatedly states that she wants to . She had just seen a vision of her late coming through the window and inviting her to come home with him to [facility] , and she became upset when told [...] cats Employment: on disability. Was working for [employer], but just lost her car. Relationships: in [...] signed by MD CORRINE Guidry> 09/16/22 1306 [facility] Work Phone: Evaluation note* Diagnosis Onset Date Resolution Status Major depressive disorder, recurrent acute Suicidal intent acute [facility] Work Phone: Evaluation note* Diagnosis Onset Date Resolution Status Major depressive disorder, recurrent acute [facility] Work Phone: Hospital course Narrative No data available for this section [facility] Additional Instructions Regular diet No activity restrictions Take 11 more doses of Doxycycline [facility] Work Phone: Progress note No data available for this section [facility] Summary Purpose Family History No Family History [...] DATE CREATED AUTHOR AUTHOR'S ORGANIZ ATION 09/12/2021 [facility] DATE CREATED AUTHOR AUTHOR'S ORGANIZ ATION 10/29/2023 [facility] DATE CREATED AUTHOR AUTHOR'S ORGANIZ ATION 12/08/2023 [facility] Care Teams (unrecognized sec tion and content) Team Status: Inactive Member Role Status Dates NON STAFF Primary Care Provider Active Jm Thrasher MD Admit Provider, Attending Pr bob Active Team Status: Active Member Role Status [...] BE BASED ON THE PRIMARY CLINICAL RECORDS. [facility] [employer] provides no warranty or guarantee of the accuracy or completeness of information in this document.
== END 2023-12-10 09:26 | disposition home or self-care (01) ==
LOC: EC 09:25
PROVIDERS: Visit Provider Orthopaedic Surgery
DX: M25.512 Pain in left shoulder (principal); Z98.890 Other specified postprocedural states
CPT/HCPCS: 73030

== ENCOUNTER 2023-12-24 10:02 | Outpatient (OUT) | payer MEDICARE, MEDICAID, SELFPAY ==
--- NOTE | 2023-12-24 10:11 | MR_ITS ---
[place] [id number] Patient Name: TOR SYKES MRN: [id number] date: 1965 Sex: F Assigned Patient Location: MRI Current Patient Location: Accession/Order Number: [id number] Exam Date: 12/24/2023 11:00 Report Date: 12/25/2023 08:21 At the request of: MAURICIO ZELAYA Procedure: MR shoulder LT wo con EXAMINATION: MR shoulder LT wo con HISTORY: Acute Pain Of Left Shoulder M25.512 COMPARISON: Plain x-ray 12/10/2023 TECHNIQUE: A variety of imaging planes and parameters were utilized for visualization of suspected pathology. Imaging was performed without contrast. FINDINGS: ROTATOR CUFF REGION CUFF TENDONS: Moderately increased signal intensity in the supraspinatus and subscapularis tendons indicates tendon degeneration and/or tendinitis. full-thickness insertional tear of the mid distal supraspinatus tendon measuring 8 mm on sagittal images CUFF MUSCLES: Mild to moderate supraspinatus muscle atrophy. DELTOID: Normal. No significant atrophy or tear. LONG BICEPS TENDON: Increased signal intensity in the biceps tendon indicates tendon degeneration and/or tendinitis. No renuka tear is seen. LABRUM/BICEPS ANCHOR SUPERIOR: Increased signal and fraying of the superior labrum, with detachment of the labrum and biceps tendon from the glenoid rim. Findings are most consistent with a Type II SLAP lesion. ANTERIOR/INFERIOR: Normal. No visible tear or attrition. POSTERIOR: Normal. No posterior labrum abnormality. CAPSULE Normal. No visible capsular laxity or thickening. AC JOINT REGION AC JOINT: Remote resection of the distal clavicle AC LIGAMENTS: Normal acromioclavicular ligament. CC LIGAMENTS: Normal coracoclavicular ligaments. ACROMION: Normal horizontal (Type I) configuration. SUBACROMIAL BURSA: Normal. No significant effusion. HYALINE CARTILAGE: Normal. No visible cartilage narrowing or focal defect. OTHER BONES: Normal proximal humerus, glenoid, and coracoid. OTHER OBSERVATIONS: Negative. No other significant findings or glenohumeral effusion. MR/MR shoulder LT wo con IMPRESSION: Moderate rotator cuff tendinitis with 8 mm full-thickness insertional tear of the distal supraspinatus tendon Mild to moderate supraspinatus muscle atrophy Type II superior labral tear Electronically authenticated by: NIKITA AGUIRRE Date: 12/25/2023 08:21
== END 2023-12-24 10:03 | disposition home or self-care (01) ==
LOC: MRI 10:02
PROVIDERS: Visit Provider Orthopaedic Surgery
DX: M25.512 Pain in left shoulder (principal); S43.422A Sprain of left rotator cuff capsule, initial encounter; S43.432A Superior glenoid labrum lesion of left shoulder, initial encounter
CPT/HCPCS: 73221